=== PATIENT | male | born 1945 | race African-American/Black ===

== ENCOUNTER 2018-09-17 21:19 | Emergency (ER) | payer MEDICARE ==
[~2018-09-17] VITALS: Ht 167.6 cm; Wt 61.4 kg
[2018-09-17 21:53] LABS: BACTERIA,URINE 0 /HPF (0-FEW); BILIRUBIN,URINE NEG (NEG); CLARITY,URINE CLEAR; COLOR,URINE YELLOW; GLUCOSE,URINE NEG (NEG); HYALINE CASTS, URINE OCC /HPF; NITRITE,URINE NEG (NEG); SQUAMOUS EPITHELIAL CELL,UR FEW /LPF; UROBILINOGEN,URINE 0.2 mg/dL (0.2 mg/dL)
[2018-09-17 21:55] LABS: AMPHETAMINE/METHAMPHETAMINE NEG (NEG); BARBITURATES NEG (NEG); BENZODIAZEPINES NEG (NEG); CANNABINOIDS NEG (NEG); COCAINE NEG (NEG); METHADONE NEG (NEG); OPIATES NEG (NEG); PHENCYCLIDINE NEG (NEG)
[2018-09-17] MEDS ORDERED: LORazepam 1 MG TABLET PO ONE (22:00)
[2018-09-17] MEDS ORDERED: IV RINGERS SOLUTION,LACTATED 1,000 ML IV SCH (22:00)
[2018-09-17 22:09] LABS: BASO # 0.1 x10^3/uL (0.0-0.2); BASO % 1 % (0-3); EOS # 0.1 x10^3/uL (0.0-0.7); EOS % 1 % (0-3); HEMATOCRIT 38.6 % (39.0-53.0); LYMPH # 2.3 x10^3/uL (1.0-4.8); LYMPH % 34 % (24-48); MEAN CORPUSCULAR HEMOGLOBIN 33 pg (25-35); MEAN CORPUSCULAR HGB CONC 34 g/dL (31-37); MEAN CORPUSCULAR VOLUME 96 fL (79-100); MONO # 0.6 x10^3/uL (0.0-1.1); MONO % 9 % (0-9); NEUT # 3.7 x10^3uL (1.8-7.7); NEUT % 55 % (31-73); PLATELET COUNT 266 x10^3/uL (140-400); RED CELL DISTRIBUTION WIDTH 12.4 % (11.5-14.5); WHITE BLOOD COUNT 6.8 x10^3/uL (4.0-11.0)
--- NOTE | 2018-09-17 22:17 | EKG ---
[address] [address] Test Date: 2018-09-17 Test Time: 22:01:51 Pat Name: MAISHA PURCELL Department: Room: Gender: M Certified Detention Deputy: : 1945 Requested By: LEONOR WILL Order Number: [id number] Reading MD: Eliezer Key MD Measurements Intervals [place] Rate: 77 P: 25 GA: 160 QRS: -23 QRSD: 82 T: 34 QT: 382 QTc: 434 Interpretive Statements SINUS RHYTHM VENTRICULAR PREMATURE COMPLEX(ES) Electronically Signed On 09-19-2018 14:27:35 [employer]USTRIAL INSULATOR by Eliezer Key MD
[2018-09-17 22:24] LABS: ALBUMIN 3.5 g/dL (3.4-5.0); ALK PHOS 97 U/L (46-116); ALT (SGPT) 16 U/L (16-63); ANION GAP 10 (6-14); AST (SGOT) 13 U/L (15-37); BLOOD UREA NITROGEN 18 mg/dL (8-26); CALCIUM 9.1 mg/dL (8.5-10.1); CARBON DIOXIDE 27 mmol/L (21-32); CHLORIDE 104 mmol/L (98-107); CREATININE 1.2 mg/dL (0.7-1.3); DIRECT BILIRUBIN 0.1 mg/dL (0.0-0.2); GFR 71.4; GLUCOSE 106 mg/dL (70-99); LIPASE 129 U/L (73-393); MAGNESIUM 2.1 mg/dL (1.8-2.4); PHENY 3.2 mcg/mL (10.0-20.0); POTASSIUM 4.3 mmol/L (3.5-5.1); SODIUM 141 mmol/L (136-145); TOTAL BILIRUBIN 0.3 mg/dL (0.2-1.0); TOTAL PROTEIN 7.2 g/dL (6.4-8.2)
--- NOTE | 2018-09-17 23:01 | RAD ---
EXAM: CHEST 1 VIEW History: Seizure COMPARISON: None available. TECHNIQUE: Single portable radiograph of the chest FINDINGS: The cardiac silhouette is unremarkable. The lungs are clear bilaterally. The costophrenic sulci are clear and well demarcated. IMPRESSION: No radiographic evidence of an acute cardiopulmonary process. Electronically signed by: Jose Moncada MD (09/17/2018 10:57 PM) [facility]
[2018-09-17] MEDS ORDERED: PHENYTOIN SODIUM EXTENDED 100 MG CAPSULE PO ONE (23:45)
[2018-09-18 00:30] VITALS: BP 158/72
[2018-09-18] MEDS ORDERED: PHEN100C PO (00:32)
--- NOTE | 2018-09-18 06:00 | ED.ADGEN ---
Past History Past Medical History: CVA, GERD, Hypertension, Seizure, TIA Past Surgical History: Other Adult General Chief Complaint Chief Complaint ".. I had a seizure... " [facility] HPI Patient is a 73 year old male who presents with hx of tonic clonic seizure. Pt. reportedly has had Seizure disorder since CVA. Pt. had persistent speech, Lt hand weakness, and bilateral leg weakness. Pt. Recently moved to area from [facility]. Pt. hx. of Tonic clonic seizures when his Dilatin levels get low.. Pt. did have incontinence of urine during current tonic clonic seizure. Patient currently denies any headache or acute changes from his baseline deficits. Patient does have a history of hypertension, elevated lipids and GERD. Patient does have problems of constipation and seasonal allergies. Patient is accompanied with his sister. Pt. currently following with Dr. Estrada . Pt. appears to be on very low dosage of Dilatin by his current Rx. Pt. currently alert and oriented to bite of his baseline motor and verbal deficits. Sister reports he is back to his normal mentation level. Review of Systems Review of Systems Constitutional: Denies fever or chills [] Eyes: Denies change in visual acuity, redness, or eye pain [] HENT: Denies nasal congestion or sore throat [] Respiratory: Denies cough or shortness of breath [] Cardiovascular: No additional information not addressed in HPI [] GI: Denies abdominal pain, nausea, vomiting, bloody stools or diarrhea [] : Denies dysuria or hematuria [] Musculoskeletal: Denies back pain or joint pain [] Integument: Denies rash or skin lesions [] Neurologic: Denies headache, focal weakness or sensory changes []history of a tonic clonic seizure Endocrine: Denies polyuria or polydipsia [] All other systems were reviewed and found to be within normal limits, except as documented in this note. Family History Family History Noncontributory Current Medications Current Medications Current Medications Medications (Trade) Dose Ordered Sig/Sam Start Time Stop Time Status Last Admin Dose Admin Lactated Ringer's 1,000 ml @ 1,000 mls/hr Q1H 09/17/18 22:00 09/17/18 22:59 DC Lorazepam (Ativan) 2 mg 1X ONCE 09/17/18 22:00 09/17/18 22:03 DC 09/17/18 23:56 2 MG Phenytoin Sodium (Dilantin) 600 mg 1X ONCE 09/17/18 23:45 09/17/18 23:58 DC 09/17/18 23:56 600 MG Allergies Allergies Allergies Coded Allergies Type Severity Reaction Last Updated Verified No Known Drug Allergies 09/17/18 No Physical Exam Physical Exam Constitutional: no acute distress, non-toxic appearance. [] HENT: Normocephalic, atraumatic, bilateral external ears normal, oropharynx moist, no oral exudates, nose normal. Right lower facial droop. Poor enunciation, Eyes: PERRLA, EOMI, conjunctiva normal, no discharge. [] Neck: Normal range of motion, no tenderness, supple, no stridor. [] No carotid bruits appreciated Cardiovascular: Bradycardia cardiac Heart rate . Did have occasional PVCs per monitor . , no murmur []PMI to lt. Lungs & Thorax: Bilateral breath sounds equal at apex with few scattered wheezes on auscultation [] Abdomen: Bowel sounds normal, soft, no tenderness, no masses, no pulsatile masses. [] Skin: Warm, dry, no erythema, no rash. [] Back: No tenderness, no CVA tenderness. [] Extremities: No tenderness, no cyanosis, no clubbing, decreased leg strength and Lt hand weakness, no edema. [] Neurologic: Alert and oriented X 3, leg weakness and lt arm weakness - baseline for pt. sensory function distal. No new focal deficits noted per pt. and sister. Psychologic: Affect normal, judgement normal, mood normal per sister. Current Patient Data Lab Results Laboratory Tests Test 09/17/18 21:35 09/17/18 21:50 Urine Collection Type Void Urine Color Yellow Urine Clarity Clear Urine pH 5.5 Urine Specific [place] 1.025 Urine Protein Neg (NEG-TRACE) Urine Glucose (UA) Neg mg/dL (NEG) Urine Ketones (Stick) Neg mg/dL (NEG) Urine Blood Neg (NEG) Urine Nitrite Neg (NEG) Urine Bilirubin Neg (NEG) Urine Urobilinogen Dipstick 0.2 mg/dL (0.2 mg/dL) Urine Leukocyte Esterase Neg (NEG) Urine RBC 1-2 /HPF (0-2) Urine WBC 1-4 /HPF (0-4) Urine Squamous Epithelial Cells Few /LPF Urine Bacteria 0 /HPF (0-FEW) Urine Hyaline Casts Occ /HPF Urine Mucus Slight /LPF Urine Opiates Screen Neg (NEG) Urine Methadone Screen Neg (NEG) Urine Barbiturates Neg (NEG) Urine Phencyclidine Screen Neg (NEG) Urine Amphetamine/Methamphetamine Neg (NEG) Urine Benzodiazepines Screen Neg (NEG) Urine Cocaine Screen Neg (NEG) Urine Cannabinoids Screen Neg (NEG) Urine Ethyl Alcohol Neg (NEG) White Blood Count 6.8 x10^3/uL (4.0-11.0) Red Blood Count 4.00 x10^6/uL (4.30-5.70) L Hemoglobin 13.0 g/dL (13.0-17.5) Hematocrit 38.6 % (39.0-53.0) L Mean Corpuscular Volume 96 fL (79-100) Mean Corpuscular Hemoglobin 33 pg (25-35) Mean Corpuscular Hemoglobin Concent 34 g/dL (31-37) Red Cell Distribution Width 12.4 % (11.5-14.5) Platelet Count 266 x10^3/uL (140-400) Neutrophils (%) (Auto) 55 % (31-73) Lymphocytes (%) (Auto) 34 % (24-48) Monocytes (%) (Auto) 9 % (0-9) Eosinophils (%) (Auto) 1 % (0-3) Basophils (%) (Auto) 1 % (0-3) Neutrophils # (Auto) 3.7 x10^3uL (1.8-7.7) Lymphocytes # (Auto) 2.3 x10^3/uL (1.0-4.8) Monocytes # (Auto) 0.6 x10^3/uL (0.0-1.1) Eosinophils # (Auto) 0.1 x10^3/uL (0.0-0.7) Basophils # (Auto) 0.1 x10^3/uL (0.0-0.2) Prothrombin Time 10.2 SEC (9.4-11.4) Prothrombin Time INR 1.0 (0.9-1.1) PTT 23 SEC (23-33) Sodium Level 141 mmol/L (136-145) Potassium Level 4.3 mmol/L (3.5-5.1) Chloride Level 104 mmol/L (98-107) Carbon Dioxide Level 27 mmol/L (21-32) Anion Gap 10 (6-14) Blood Urea Nitrogen 18 mg/dL (8-26) Creatinine 1.2 mg/dL (0.7-1.3) Estimated GFR (Cockcroft-Gault) 71.4 Glucose Level 106 mg/dL (70-99) H Calcium Level 9.1 mg/dL (8.5-10.1) Magnesium Level 2.1 mg/dL (1.8-2.4) Total Bilirubin 0.3 mg/dL (0.2-1.0) Direct Bilirubin 0.1 mg/dL (0.0-0.2) Aspartate Amino Transferase (AST) 13 U/L (15-37) L Alanine Aminotransferase (ALT) 16 U/L (16-63) Alkaline Phosphatase 97 U/L (46-116) Creatine Kinase 69 U/L (39-308) Troponin I Quantitative < 0.017 ng/mL (0-0.055) JL-Jpb-E-Type Natriuretic Peptide 87 pg/mL (0-449) Total Protein 7.2 g/dL (6.4-8.2) Albumin 3.5 g/dL (3.4-5.0) Lipase 129 U/L (73-393) Phenytoin (Dilantin) Level 3.2 mcg/mL (10.0-20.0) L Phenytoin Last Dose Date Unk Phenytoin Last Dose Time Unk EKG EKG My interpretation of EKG shows sinus with vent. rate of 77, occasional PVC multifocal [] Radiology/Procedures Radiology/Procedures I interpretation of chest x-ray shows no acute cardio for pulmonary findings. Does have some baseline chronic lung changes. Findings of old rib fractures on left. There is some degenerative joint changes.[] Course & Med Decision Making Course & Med Decision Making Pertinent Labs and Imaging studies reviewed. (See chart for details). Patient to follow-up primary care. Recommend increase Dilantin to 300 mg at night. Patient was given a loading dose of Dilantin of 600 mg here before discharge. Suspect there is an error in Rx and should actually be on higher dosage. ( Not 100mg in am and 60 mg at night.) Pt. Blood level here was 3.2 [] Final Impression Final Impression 1. Tonic Clonic Seizue 2. Hx. CVA- with Chronic deficits 3. Sub Therapeutic Dilantin Level 3.2[] Kina Disclaimer Dragon Disclaimer This electronic medical record was generated, in whole or in part, using a voice recognition dictation system. LEONOR WILL MD Sep 18, 2018 06:00
== END 2018-09-18 00:52 | disposition home or self-care (01) ==
LOC: ER 21:19
DX: G40.909 Epilepsy, unspecified, not intractable, without status epilepticus (principal); R53.1 Weakness; R89.2 Abnormal level of other drugs, medicaments and biological substances in specimens from other organs, systems and tissues; E78.5 Hyperlipidemia, unspecified; K21.9 Gastro-esophageal reflux disease without esophagitis; I10 Essential (primary) hypertension; Z86.73 Personal history of transient ischemic attack (TIA), and cerebral infarction without residual deficits
CPT/HCPCS: 36415; 71045; 80048; 80076; 80185; 80307; 81001; 82550; 83690; 83735; 83880; 84443; 84484; 85025; 85610; 85730; 93005; 99285

== ENCOUNTER 2019-01-26 03:31 | Inpatient (IN) | payer MEDICARE ==
[~2019-01-26] VITALS: Ht 170.2 cm; Wt 57.2 kg
[~2019-01-26 03:31] MED LIST: PHEN100C PO
[2019-01-26 04:18] LABS: BASO % 1 % (0-3); EOS % 0 % (0-3); HEMATOCRIT 40.7 % (39.0-53.0); HEMOGLOBIN 13.9 g/dL (13.0-17.5); LYMPH # 1.1 x10^3/uL (1.0-4.8); LYMPH % 16 % (24-48); MEAN CORPUSCULAR HEMOGLOBIN 33 pg (25-35); MEAN CORPUSCULAR HGB CONC 34 g/dL (31-37); MEAN CORPUSCULAR VOLUME 98 fL (79-100); MONO # 0.3 x10^3/uL (0.0-1.1); MONO % 5 % (0-9); NEUT # 5.1 x10^3uL (1.8-7.7); NEUT % 78 % (31-73); PLATELET COUNT 241 x10^3/uL (140-400); RED BLOOD COUNT 4.17 x10^6/uL (4.30-5.70); RED CELL DISTRIBUTION WIDTH 12.9 % (11.5-14.5); WHITE BLOOD COUNT 6.5 x10^3/uL (4.0-11.0)
--- NOTE | 2019-01-26 04:27 | PHYS DOC ---
Past History Past Medical History: CVA, GERD, Hypertension, Seizure, TIA Past Surgical History: Other Alcohol Use: Sober Drug Use: None Adult General Chief Complaint Chief Complaint: SEIZURE HPI HPI 73-year-old male presents via EMS after seizure. The patient does not remember what happened. His sister provides the history. She states that he was in his bed and then started have full body convulsions. This lasted for about 5 minutes. This is typical of his previous seizures. His last seizure was 4 months ago. At that time they increased his Dilantin dosing from 30 mg daily to 60 mg daily at bedtime. The patient has been taking his medications as prescribed. At this time, he denies any pain or other complaints of any kind. He states that he is feeling normal. He tells me that he never remembers his seizures. The patient has had a cough with mucus production lately, but no fever. Review of Systems Review of Systems Constitutional: Denies fever or chills [] Eyes: Denies change in visual acuity, redness, or eye pain [] HENT: Denies nasal congestion or sore throat [] Respiratory: Cough without shortness of breath [] Cardiovascular: No additional information not addressed in HPI [] GI: Denies abdominal pain, nausea, vomiting, bloody stools or diarrhea [] : Denies dysuria or hematuria [] Musculoskeletal: Denies back pain or joint pain [] Integument: Denies rash or skin lesions [] Neurologic: Denies headache, focal weakness or sensory changes. Seizure [] Endocrine: Denies polyuria or polydipsia [] All other systems were reviewed and found to be within normal limits, except as documented in this note. Allergies Allergies Allergies Coded Allergies Type Severity Reaction Last Updated Verified aspirin Allergy Unknown 09/18/18 Yes lisinopril Allergy Unknown 09/18/18 Yes Physical Exam Physical Exam Constitutional: Well developed, well nourished, no acute distress, non-toxic appearance. [] HENT: Normocephalic, atraumatic, bilateral external ears normal, oropharynx moist, no oral exudates, nose normal. No teeth.[] Eyes: PERRLA, EOMI, conjunctiva normal, no discharge. [] Neck: Normal range of motion, no tenderness, supple, no stridor. [] Cardiovascular:Heart rate regular rhythm, no murmur [] Lungs & Thorax: Bilateral breath sounds clear to auscultation [] Abdomen: Bowel sounds normal, soft, no tenderness, no masses, no pulsatile masses. [] Skin: Warm, dry, no erythema, no rash. [] Back: No tenderness, no CVA tenderness. [] Extremities: No tenderness, no cyanosis, no clubbing, ROM intact, no edema. [] Neurologic: Alert and oriented X 3, normal motor function, normal sensory function, no focal deficits noted. [] Psychologic: Affect normal, judgement normal, mood normal. [] Current Patient Data Vital Signs Vital Signs Date Time Temp Pulse Resp B/P (MAP) Pulse Ox O2 Delivery O2 Flow Rate FiO2 01/26/19 03:37 98.6 46 19 100 Room Air EKG EKG Sinus rhythm, rate 83, trigeminy, leftward axis, no ST elevations or depressions.[] Radiology/Procedures Radiology/Procedures [] Impressions: CT scan of the head without contrast 01/26/2019 Clinical History: Seizures. Technique: Unenhanced, contiguous, 5 mm axial sections were obtained through the head. Findings: No previous imaging studies are available for comparison. There is generalized parenchymal atrophy. Areas of decreased attenuation are seen within the periventricular and subcortical white matter of both cerebral hemispheres consistent with areas of small vessel ischemic disease. No acute parenchymal abnormality is seen. No extra-axial fluid collection is noted. No skull fracture is seen. Impression: No acute intracranial abnormality is seen. Electronically signed by: Heri Ruiz MD (01/26/2019 4:56 AM) [id number] DICTATED AND SIGNED BY: HERI RUIZ MD DATE: 01/26/19 0456 CC: AYLIN MOHAN DO; LEESA MATA MD AP portable chest radiograph 01/26/2019 Clinical History: Seizure. An AP erect portable digital radiograph of the chest was obtained. Comparison study is dated 09/17/2018. The cardiac silhouette is normal in size. The thoracic aorta is tortuous. Atherosclerotic calcification thoracic aorta is seen. No acute pulmonary infiltrate is noted. No pneumothorax or pleural effusion is seen. Degenerative changes are seen involving the thoracic spine and both shoulders. Impression: No acute abnormality is seen. Electronically signed by: Heri Ruiz MD (01/26/2019 5:15 AM) [facility] DICTATED AND SIGNED BY: HERI RUIZ MD DATE: 01/26/19 0515 CC: AYLIN MOHAN DO; LEESA MATA MD Course & Med Decision Making Course & Med Decision Making Pertinent Labs and Imaging studies reviewed. (See chart for details) The patient's phenytoin level is subtherapeutic at 2.9. As I was reviewing his labs, the patient had a second seizure in the emergency room. This was tonic- clonic in nature. We gave him 2 mg of Ativan IV. We'll give him 10 mg/kg loading dose of fosphenytoin as he is nothing by mouth for now. The rest of the patient's labs and urinalysis are unremarkable. His head CT is deferred acute findings. His chest x-ray is negative for acute findings. I will admit the patient to the hospital for further management. I discussed the patient with Dr. Mata and he has accepted the patient for admission. [] Dragon Disclaimer Dragon Disclaimer This electronic medical record was generated, in whole or in part, using a voice recognition dictation system. Departure Departure: Impression: Primary Impression: Breakthrough seizure Disposition: ADMITTED INPATIENT Condition: STABLE Referrals: LEESA MATA MD (PCP) AYLIN MOHAN DO Jan 26, 2019 04:27
[2019-01-26 04:29] LABS: BACTERIA,URINE 0 /HPF (0-FEW); BILIRUBIN,URINE NEG (NEG); CLARITY,URINE CLEAR; COLOR,URINE YELLOW; GLUCOSE,URINE NEG (NEG); NITRITE,URINE NEG (NEG); RBC,URINE 0 /HPF (0-2); SQUAMOUS EPITHELIAL CELL,UR OCC /LPF; UROBILINOGEN,URINE 0.2 mg/dL (0.2 mg/dL); WBC,URINE RARE /HPF (0-4)
[2019-01-26 04:31] LABS: PHENY 2.9 mcg/mL (10.0-20.0)
[2019-01-26 04:38] LABS: ALBUMIN 3.9 g/dL (3.4-5.0); ALBUMIN/GLOBULIN RATIO 1.1 (1.0-1.7); CALCIUM 9.3 mg/dL (8.5-10.1); CREATININE 1.3 mg/dL (0.7-1.3); GFR 65.1; POTASSIUM 4.4 mmol/L (3.5-5.1); TOTAL BILIRUBIN 0.5 mg/dL (0.2-1.0); TOTAL PROTEIN 7.3 g/dL (6.4-8.2)
--- NOTE | 2019-01-26 04:59 | RAD ---
CT scan of the head without contrast 01/26/2019 Clinical History: Seizures. Technique: Unenhanced, contiguous, 5 mm axial sections were obtained through the head. Findings: No previous imaging studies are available for comparison. There is generalized parenchymal atrophy. Areas of decreased attenuation are seen within the periventricular and subcortical white matter of both cerebral hemispheres consistent with areas of small vessel ischemic disease. No acute parenchymal abnormality is seen. No extra-axial fluid collection is noted. No skull fracture is seen. Impression: No acute intracranial abnormality is seen. Electronically signed by: Heri Ruiz MD (01/26/2019 4:56 AM) [facility]
[2019-01-26] MEDS ORDERED: NORMAL SALINE IV ONE (05:00)
[2019-01-26] MEDS ORDERED: IV NORMAL SALINE 50ML 50 ML ONE (05:00)
[2019-01-26] MEDS ORDERED: FOSPHENYTOIN IV ONE (05:00)
[2019-01-26] MEDS ORDERED: FOSPHENYTOIN 500 MG/10 ML VIAL IV ONE (05:01)
--- NOTE | 2019-01-26 05:18 | RAD ---
AP portable chest radiograph 01/26/2019 Clinical History: Seizure. An AP erect portable digital radiograph of the chest was obtained. Comparison study is dated 09/17/2018. The cardiac silhouette is normal in size. The thoracic aorta is tortuous. Atherosclerotic calcification thoracic aorta is seen. No acute pulmonary infiltrate is noted. No pneumothorax or pleural effusion is seen. Degenerative changes are seen involving the thoracic spine and both shoulders. Impression: No acute abnormality is seen. Electronically signed by: Heri Ruiz MD (01/26/2019 5:15 AM) [facility]
[2019-01-26 06:03] VITALS: BP 136/77
--- NOTE | 2019-01-26 06:39 | EKG ---
[address] [address] Test Date: 2019-01-26 Test Time: 04:03:23 Pat Name: MAISHA PURCELL Department: Room: 125 A Gender: M Supervisor [employer] House: : 1945 Requested By: AYLIN MOHAN Order Number: [id number] Reading MD: Eliezer Key MD Measurements Intervals [place] Rate: 83 P: 37 NM: 154 QRS: -21 QRSD: 74 T: 52 QT: 374 QTc: 440 Interpretive Statements SINUS RHYTHM VENTRICULAR PREMATURE COMPLEX(ES), TRIGEMINY Electronically Signed On 01-29-2019 22:02:23 CDT by Eliezer Key MD
[2019-01-26 10:25] VITALS: BP 122/70
--- NOTE | 2019-01-26 10:52 | HP ---
ADMIT DATE: 01/26/2019 HISTORY OF PRESENT ILLNESS: A 73-year-old gentleman came in with seizure-like activity, was brought in through the Emergency Room where apparently does not remember what happened. The patient apparently not taking his medication, had full body convulsions that lasted approximately 5 minutes. His last seizure was about 4 months ago. He recently increased his Dilantin from 30 mg to 60 mg daily as prescribed, I am not quite sure who has prescribed that for him. Denies any pain, chest pain, shortness of breath and the like. The patient was admitted for seizures and subtherapeutic doses of his medications. PAST MEDICAL HISTORY: That of has had a history of a stroke, left-sided residual and history of seizures no doubt. ALLERGIES: ASPIRIN, LISINOPRIL. CODE STATUS: The patient is a full code. FAMILY HISTORY: Unremarkable. SOCIAL HISTORY: Previous history of smoking, but nothing recent and no drinking or drug use. REVIEW OF SYSTEMS: The patient otherwise being lethargic. He is not able to give much of a history. Denies chest pain, abdominal pain. Denies any nausea, vomiting, melena, hematochezia, or hematemesis. PHYSICAL EXAMINATION: GENERAL: This is a very pleasant [place]ro[place] gentleman in moderate amount of distress. He is very tired. VITAL SIGNS: Blood pressure 160/80, respiratory rate 20, pulse 46-70, afebrile. The patient's oxygen saturation 97%. HEENT: The patient's head was atraumatic, normocephalic. Eyes; PERRLA without jaundice. Mouth and throat were normal. NECK: Supple, without JVD, carotid bruits. No thyromegaly. LUNGS: Diminished throughout, but basically clear. CARDIOVASCULAR: Regular sinus rhythm, S1, S2, without murmur, rub, thrill, or extra heart sound. ABDOMEN: Soft, nontender, no rebounding or guarding. No hepatosplenomegaly. EXTREMITIES: No clubbing, cyanosis or edema. NEUROLOGIC: Lethargic. Eyes are PERRLA, EOMI, sclerae clear, fundi benign. The patient was able to follow some basic commands. Plantars were down. Reflexes were brisk. LABORATORY DATA: The patient's labs are basically stable in terms of his CBC. Cardiac enzymes were all basically within normal limits except for his Dilantin level only 2.9. PLAN: The patient was admitted for further evaluation of his seizure activity and get his Dilantin level up to therapeutic levels and consult with Dr. Mejias, neurologist. LEESA MATA MD DR: MALA/caro JOB#: [id number] / [id number]
[2019-01-26 11:55] LABS: PHENY 12.4 mcg/mL (10.0-20.0)
[2019-01-26 14:47] VITALS: BP 116/73
[2019-01-26] MEDS: IV NORMAL SALINE 1,000ML 1,000 ML IV SCH (16:59)
[2019-01-26 19:55] VITALS: BP 135/81
[2019-01-26] MEDS ORDERED: PHENYTOIN SODIUM EXTENDED 100 MG CAPSULE PO SCH (21:00)
[2019-01-26] MEDS: FOSPHENYTOIN 100 MG/2 ML VIAL IV SCH (22:55)
[2019-01-26 23:37] VITALS: BP 121/66
--- NOTE | 2019-01-27 01:07 | CONS ---
DATE OF CONSULTATION: 01/26/2019 REFERRING PHYSICIAN: Dr. Estrada. REASON FOR CONSULTATION: Breakthrough seizure. HISTORY OF PRESENT ILLNESS: This is a 73-year-old right-handed -[place]og[place]ese male who was admitted through Emergency Room after he presented with possible seizure-like activities. According to the patient, he has not been taking medication regularly. He does not recall what happened to him, however, it was weakness, it was reported that he had a seizure, a generalized tonic-clonic seizure, but the patient did not recall the event. The patient is not perfect historian. He stated his last seizure was 4 months ago and he is supposed to take Dilantin, but he does not remember the dose. He stated he was taking 60 mg of Dilantin at bedtime, which is usually not a standard dose for seizure. The last seizure was approximately 4 months ago. The patient denies any urinary or bowel incontinence. Apparently, he was somewhat confused for a few minutes after the seizure activities. Initial nonenhanced head CT scan revealed no evidence of acute intracranial process. Currently, the patient denies headaches, visual disturbances, nausea, vomiting, chest pain, shortness of breath or palpitation, dysarthria, dysphagia, weakness or paresthesia. In the Emergency Room, the patient was loaded with fosphenytoin at 590 mg intravenously. He has not had any recurrent seizures since. The patient has been scheduled to receive 300 mg of Dilantin nightly. PAST MEDICAL HISTORY: Significant for seizure as described above, history of stroke several years ago, GERD, hypertension, possible TIA. SOCIAL HISTORY: The patient denies smoking, alcohol drinking, or illicit drug use. FAMILY HISTORY: Noncontributory. REVIEW OF SYSTEMS: A 10-point review of system was performed as mentioned above in history of present illness, otherwise unremarkable. PHYSICAL EXAMINATION: GENERAL: Well-developed, well-nourished -[place]og[place]ese man, not in acute distress. He weighs 132 pounds. VITAL SIGNS: Blood pressure 122/70, respiratory rate 18, pulse is 60 and regular, temperature 98.4, oxygen saturation is 99% on 2 liters by nasal cannula. HEENT: Normocephalic, atraumatic, otherwise unremarkable. NECK: Supple. Negative for carotid bruit, lymphadenopathy or thyromegaly. LUNGS: Clear to A and P. CARDIOVASCULAR: Regular rhythm, normal S1, S2. There is no S3, S4 or murmurs. ABDOMEN: Soft. Bowel sounds positive. EXTREMITIES: Negative for cyanosis, clubbing or pitting edema. NEUROLOGICAL EXAM: Mental Status: The patient is alert and oriented to time and place and person. The speech is fluent. There is no language dysfunction. Patient recalls 2/3 immediately and 1/3 after 1 and 3 minutes. Judgment and abstracting thinking are fair. The patient denies hallucination or delusion. CRANIAL NERVES: Visual perez are full. The pupils are reactive to light and accommodation. The extraocular movements are intact. There is no nystagmus. There is no facial motor or sensory deficit. Hearing is intact bilaterally. The palate is elevated symmetrically. Sternocleidomastoid muscles are powerful bilaterally. The patient shrugs his shoulders symmetrically, protrudes his tongue in the midline without fasciculation or atrophy. MOTOR: No focal muscle bulk was seen. The tone is normal. The strength is 4/5 throughout. Sensory examination revealed normal to pinprick, light touch, vibratory and position senses. Deep tendon reflexes were asymmetric and hypoactive with absent Achilles responses. Gait not tested at this time. LABORATORY DATA: CBC revealed white blood cells of 6.5 thousand, hemoglobin 15.9, hematocrit 40.7, platelet count 241,000. Chemistry revealed sodium of 136, potassium 4.4, chloride 100, CO2 24, BUN 16, creatinine 1.3, glucose 115, calcium 9.3. Troponin level is normal and liver enzymes are normal with low AST. Urinalysis is negative for urinary tract infections, phenytoin level is very low at 2.9. After giving a loading dose of fosphenytoin, his Dilantin level at 11:37 was 12.4. A nonenhanced head CT scan revealed no evidence of acute intracranial process and a chest x-ray revealed no acute abnormalities. IMPRESSION: 1. Possible breakthrough seizure in a patient with history of seizure disorder of etiology uncertain, probably due to previous stroke. 2. Multiple medical problems include hypertension, GERD and possible transient ischemic attack. RECOMMENDATIONS: 1. Continue with phenytoin 300 mg at bedtime. 2. We will arrange for electroencephalogram on an outpatient basis. 3. Should the patient have a breakthrough seizure, we will start him on Ativan and adjust phenytoin. M Ben DIAZ MD DR: Bennie JOB#: [id number] / [id number]
[2019-01-27 04:56] VITALS: BP 134/76
[2019-01-27] MEDS: FOSPHENYTOIN 100 MG/2 ML VIAL IV SCH ×3 (05:45→21:35)
[2019-01-27] MEDS: IV NORMAL SALINE 1,000ML 1,000 ML IV SCH (08:27)
[2019-01-27 10:02] VITALS: BP 120/62
[2019-01-27 10:17] LABS: PHENY 12.7 mcg/mL (10.0-20.0)
--- NOTE | 2019-01-27 11:42 | RAD ---
Swallow study January 27, 2019 INDICATION: Aspiration. COMPARISON: None available TECHNIQUE: Evaluation was performed during the ingestion of thin, honey thick, pureed and solid consistencies. Fluoroscopy time: 2 minutes Number of images: 14 FINDINGS: There is aspiration with all consistencies ingested. Findings are exacerbated with moderate residue within the vallecula and trace residue within the piriform sinuses. There is poor epiglottic inversion. Mild cervical osteophytosis. IMPRESSION: There is aspiration with all consistencies ingested. Please refer to the separate CT pathology report for further details. Electronically signed by: Vaishali Rahman MD (01/27/2019 11:39 AM) [id number]
[2019-01-27 15:00] VITALS: BP 127/59
[2019-01-27] MEDS: AA 3%/ELECTROLYTE-TPN SOLN/GLY 1,000 ML IV SCH (15:14)
[2019-01-27 19:32] VITALS: BP 153/64
--- NOTE | 2019-01-27 19:43 | PN ---
DATE: SUBJECTIVE: The patient continued to have some difficulty swallowing. A bedside swallowing test revealed evidence of dysphagia and possible risk of aspiration. Therefore, the patient has been scheduled for a video dysphagia test today. He has not had any recurrent seizure. He denies any new medical or neurological complaints. OBJECTIVE: GENERAL: Well-developed, well-nourished -Maced[place] male, not in acute distress. VITAL SIGNS: Blood pressure 134/76, respiratory rate 20, pulse is 63, temperature 98.6, oxygen saturation 97% on room air. HEENT: Normocephalic, atraumatic, otherwise unremarkable. NECK: Supple. Negative for carotid bruit, lymphadenopathy or thyromegaly. LUNGS: Clear to A and P. CARDIOVASCULAR: Regular rhythm, normal S1, S2. ABDOMEN: Soft. Bowel sounds positive. EXTREMITIES: Negative for cyanosis, clubbing or pitting edema. NEUROLOGICAL EXAM: Mental Status: The patient is alert and oriented x 3. Speech is fluent. There is no language dysfunction. Memory, judgment, and abstracting thinking are fair. The patient denies hallucination or delusion. Cranial nerves are intact except for mild bilateral hearing loss. Motor Examination: No focal muscle bulk was seen. The tone is normal. The strength is 4/5 throughout. Sensory examination revealed normal pinprick and light touch senses throughout. Deep tendon reflexes were asymmetric and hypoactive with absent Achilles responses. Gait: The patient uses a walker for ambulation. IMPRESSION: 1. Breakthrough seizure, described as generalized tonic-clonic seizure, probably due to noncompliance and subtherapeutic level of phenytoin, but the current phenytoin level is therapeutic on maintenance dose of 300 mg daily. 2. Dysphagia. 3. Multiple medical problems include gastroesophageal reflux disease, hypertension, and history of stroke. RECOMMENDATIONS: 1. Continue with current management initiated by Dr. Estrada. 2. Physical therapy evaluation. 3. Await for dysphagia video test. M Ben DIAZ MD DR: KARINA/caro JOB#: [id number] / [id number]
[2019-01-27 23:24] VITALS: BP 128/68
--- NOTE | 2019-01-28 00:50 | PN ---
DATE: SUBJECTIVE: The patient is a 73-year-old male admitted with seizure activity. The patient did have a video swallow today and it was basically aspiration, consistent with everything ingested, liquid as well as solid. As a result of this, the family will be consulted on whether or not they want a gastrostomy tube or put him on hospice. In any case, the patient is resting fairly comfortably. OBJECTIVE: VITAL SIGNS: Blood pressure 127/59, respiratory rate 20, pulse 80, and afebrile. GENERAL: The patient is alert and oriented. LUNGS: Show some coarse breath sounds. CARDIOVASCULAR: Tachycardic. ABDOMEN: Soft, nontender. PLAN: The patient will be placed on ProcalAmine, while the family makes their decision as to the course of therapy. IMPRESSION: Complete aspiration of liquids and solids, seizure activity, being monitored by Dr. Mejias, on the latter. We will go ahead and wait for family's consultation for their decision. LEESA MATA MD DR: MALA/caro JOB#: [id number] / [id number]
[2019-01-28] MEDS ORDERED: SODIUM CHLORIDE 0.65% NASAL SPRAY 45ML BOTTLE. NS PRN (01:30)
[2019-01-28] MEDS: AA 3%/ELECTROLYTE-TPN SOLN/GLY 1,000 ML IV SCH ×2 (02:00→17:24)
[2019-01-28] MEDS: diphenhydrAMINE 50 MG/ML VIAL IVP PRN (02:00)
[2019-01-28] MEDS: FOSPHENYTOIN 100 MG/2 ML VIAL IV SCH ×3 (05:33→21:50)
[2019-01-28 05:46] VITALS: BP 113/76
[2019-01-28 11:29] VITALS: BP 136/72
--- NOTE | 2019-01-28 13:20 | PN ---
DATE: 01/28/2019 SUBJECTIVE: The patient denies any new medical neurological complaints. He continues to have dysphagia. A recent dysphagia, we did test result, a complete aspiration was all consistency ingested. He denies any recurrent seizures. OBJECTIVE: GENERAL: Well-developed, well-nourished -[place]aporean male, not in acute distress. VITAL SIGNS: Blood pressure 130/76, respiratory rate 18, pulse is 89, temperature 97.8, oxygen saturation 96% on room air. HEENT: Normocephalic, atraumatic, otherwise unremarkable. NECK: Supple. Negative for carotid bruit, lymphadenopathy or thyromegaly. LUNGS: Clear to A and P. CARDIOVASCULAR: Regular rate and rhythm, normal S1, S2. There is no S3, S4 or murmur. ABDOMEN: Soft. Bowel sounds positive. EXTREMITIES: Negative for cyanosis, clubbing or pitting edema. NEUROLOGIC: The patient is alert and oriented x 3. Speech is fluent. There is no language dysfunction. Cranial nerves are intact. No focal motor or sensory deficit. Deep tendon reflexes are symmetric and hypoactive with absent Achilles responses. Gait not tested at this time. IMPRESSION: 1. Breakthrough seizures. However, the patient has not had any recurrent seizure and he is on phenytoin with current therapeutic level. 2. Dysphagia with abnormal video dysphagia test consistent with complete aspiration to with all consistencies ingested. RECOMMENDATIONS: 1. Continue with current management and medication. 2. Physical therapy as tolerated. 3. Await for feeding tube. M Ben DIAZ MD DR: KARINA/caro JOB#: [id number] / [id number]
[2019-01-28 15:50] VITALS: BP 134/64
[2019-01-28 19:10] VITALS: BP 113/74
--- NOTE | 2019-01-28 22:41 | PN ---
DATE: 01/28/2019 SUBJECTIVE: The patient is resting, slightly propped up in bed, in no apparent respiratory distress. He states that he is hungry and would like to eat. Apparently, he has failed his video swallowing evaluation and as per his all consistencies and a discussion yesterday with our manager social media and his family was about decision making regarding either pursuing aggressive approach and placement of a feeding tube and/or palliative and hospice care. The patient himself, when asked, he said that he does not want a feeding tube; however, I have not interacted with his family yet and obviously by tomorrow we need to have a final decision as I need to transfer him to [facility] for placement of a feeding tube on Wednesday. PHYSICAL EXAMINATION: GENERAL: When I saw him this afternoon, he was resting flat, slightly propped up in bed, in no apparent respiratory distress, pale, but no jaundice, cyanosis or thyromegaly. No jugular venous distension. No lower limb edema. VITAL SIGNS: Her heart rate was 57, blood pressure was 136/72, temperature was 99.1, respiratory rate was 18 and oxygen saturation was 99% on 2 liters of oxygen by nasal cannula. HEENT: Examination of the head, eyes, ears, nose and throat showed normocephalic, atraumatic. NECK: Supple. HEART: Showed normal first and second heart sounds. No gallop, rub or murmur. CHEST: Clear to auscultation. No crepitation or rhonchi. ABDOMEN: Slightly distended, soft, nontender. NEUROLOGIC: He was awake, alert, responding appropriately and when questioned, he said he does not want a feeding tube in; however, I have not met the family yet to discuss that issue with them. LABORATORY DATA: His most recent lab work showed a white cell count of 6500, hemoglobin 14, hematocrit 41, MCV 98 and platelet count of 241,000. His serum sodium was 136, potassium 4.4, chloride 100, bicarbonate 24, anion gap 12, BUN 16, creatinine 1.3, estimated GFR was 65 mL per minute, his glucose 115, calcium was 9.3. Total bilirubin, AST, ALT, alkaline phosphatase were normal. Total protein was 7.3, albumin 3.9. Urinalysis was unremarkable. Toxic screen showed that phenytoin is within therapeutic range. ASSESSMENT: 1. Breakthrough seizures for which the patient continued to be on IV phenytoin and has had no further recurrence. 2. Dysphagia with abnormal video swallowing test consistent with component of aspiration to all consistencies. PLAN: The plan is to await the final decision by the family as I need to arrange for him to be transferred to [facility] for placement of percutaneous endoscopic gastrostomy tube. Meanwhile, I will repeat his labs tomorrow. SAFIA BERGER MD DR: JENNIFER/caro JOB#: [id number] / [id number]
[2019-01-29] MEDS: AA 3%/ELECTROLYTE-TPN SOLN/GLY 1,000 ML IV SCH ×2 (04:30→17:00)
[2019-01-29] MEDS: FOSPHENYTOIN 100 MG/2 ML VIAL IV SCH ×3 (06:00→21:32)
[2019-01-29 06:34] VITALS: BP 132/74
[2019-01-29 07:26] LABS: HEMATOCRIT 38.5 % (39.0-53.0); HEMOGLOBIN 13.1 g/dL (13.0-17.5); RED BLOOD COUNT 3.98 x10^6/uL (4.30-5.70); RED CELL DISTRIBUTION WIDTH 12.7 % (11.5-14.5); WHITE BLOOD COUNT 5.6 x10^3/uL (4.0-11.0)
[2019-01-29 07:41] LABS: ALBUMIN 3.1 g/dL (3.4-5.0); ALBUMIN/GLOBULIN RATIO 0.8 (1.0-1.7); CALCIUM 8.9 mg/dL (8.5-10.1); CREATININE 1.1 mg/dL (0.7-1.3); POTASSIUM 4.2 mmol/L (3.5-5.1); TOTAL BILIRUBIN 0.6 mg/dL (0.2-1.0); TOTAL PROTEIN 6.8 g/dL (6.4-8.2)
[2019-01-29 15:08] VITALS: BP 126/78
[2019-01-29 18:40] VITALS: BP 143/73
--- NOTE | 2019-01-29 20:15 | PN ---
DATE: 01/29/2019 SUBJECTIVE: The patient denies any new medical or neurological complaints. He has not had any seizures since admission; however, he has had continuous dysphagia. OBJECTIVE: GENERAL: Well-developed, well-nourished -[place] male, not in acute distress. VITAL SIGNS: Blood pressure 132/74, respiratory rate 12, pulse is 58, temperature 98.2, oxygen saturation 96% on room air. HEENT: Normocephalic, atraumatic, otherwise unremarkable. NECK: Supple. Negative for carotid bruit, lymphadenopathy or thyromegaly. LUNGS: Clear to A and P. CARDIOVASCULAR: Regular rate and rhythm, normal S1, S2. ABDOMEN: Soft. Bowel sounds positive. EXTREMITIES: Negative for cyanosis, clubbing, or pitting edema. NEUROLOGIC: 1. Mental Status: The patient is alert and oriented x 3. Speech is fluent. There is no language dysfunction. 2. Cranial Nerves: There is left facial asymmetry probably due to previous stroke, otherwise unremarkable cranial nerves. 3. Motor Examination: No focal muscle bulk was seen. The tone is normal. The strength is 5/5 throughout. 4. Sensory examination revealed normal pinprick and light touch senses throughout. Deep tendon reflexes were symmetric and hypoactive with absent Achilles responses. Gait not tested. IMPRESSION: 1. Breakthrough seizure - stable. No recurrence since admission. 2. Dysphagia. 3. Multiple medical problems to include hypertension, gastroesophageal reflux disease, and history of stroke. RECOMMENDATIONS: 1. Continue with current management initiated by Dr. Erickson. 2. Await for feeding tube placement. M Ben DIAZ MD DR: KARINA/caro JOB#: [id number] / [id number]
--- NOTE | 2019-01-29 21:31 | PN ---
DATE: SUBJECTIVE: The patient was admitted for a breakthrough seizure and apparently has had severe dysphagia to all consistencies. I was under the impression that he is going to be transferred to [facility]; however, the patient makes his own decision and he was insisting he wants to go home, although his video swallowing evaluation showed that he is aspirating all consistencies. I basically opted to keep him overnight that we will talk to him again tomorrow and perhaps evaluate his swallowing and get the social services to discuss with him further, the implication of his decision and either discharge him home with hospice or transfer him to [facility] for placement of percutaneous endoscopic gastrostomy tube. PHYSICAL EXAMINATION: GENERAL: When I saw him this morning, he looked well and was clearly in no apparent respiratory distress, pale, but no jaundice, cyanosis, or thyromegaly. No jugular venous distension. No limb edema. VITAL SIGNS: Her heart rate was 58, blood pressure 132/74, temperature was 98.2, respiratory rate 12 and oxygen saturation was 96%. The rest of clinical examination is stable, has not really changed. His intake was 800, output was 750. LABORATORY DATA: His lab work this morning showed a white cell count 5600, hemoglobin 13, hematocrit 39, MCV 97, and platelet count 200,000. Serum sodium 140, potassium 4.2, chloride 105, bicarbonate 27, anion gap of 8, BUN 18, creatinine 1.1, estimated GFR was 79 mL per minute. His glucose was 104, calcium was 8.9. Total bilirubin, AST, ALT, alkaline phosphatase were normal. Total protein 6.8, albumin 3.1. Urinalysis is unremarkable and toxic screen showed his phenytoin level was 12.7, which is well within therapeutic range. ASSESSMENT AND PLAN: 1. Breakthrough seizure for which the patient is now on IV phenytoin, has had no further recurrence and his phenytoin level is within therapeutic range. 2. Dysphagia with abnormal video swallowing test consistent with confirming that he is aspirating all consistencies. 3. Left-sided hemiplegia. 4. Hypertension. 5. Gastroesophageal reflux disease. SAFIA BERGER MD DR: JENNIFER/caro JOB#: [id number] / [id number]
[2019-01-29] MEDS: diphenhydrAMINE 50 MG/ML VIAL IVP PRN (21:32)
[2019-01-29 22:45] VITALS: BP 130/74
[2019-01-30] MEDS: AA 3%/ELECTROLYTE-TPN SOLN/GLY 1,000 ML IV SCH ×3 (02:02→17:59)
[2019-01-30] MEDS: FOSPHENYTOIN 100 MG/2 ML VIAL IV SCH ×2 (05:33→14:27)
[2019-01-30 05:50] VITALS: BP 101/63
[2019-01-30 10:40] VITALS: BP 121/78
[2019-01-30 15:00] VITALS: BP 112/62
[2019-01-30] MEDS ORDERED: diphenhydrAMINE HCL 25 MG CAPSULE PO PRN (18:15)
[2019-01-30 19:34] VITALS: BP 142/75
[2019-01-30] MEDS ORDERED: PHENYTOIN SODIUM EXTENDED 100 MG CAPSULE PO SCH (21:00)
--- NOTE | 2019-01-30 21:10 | PN ---
DATE: 01/30/2019 SUBJECTIVE: The patient denies any new medical or neurological complaints. He has not had any seizures since admission; however, he declined to have a feeding tube placed. OBJECTIVE: GENERAL: Well-developed, well-nourished male, not in acute distress. VITAL SIGNS: Blood pressure 101/63, respiratory rate 18, pulse is 59, oxygen saturation is 96% on room air and temperature is 99. HEENT: Normocephalic, atraumatic, otherwise unremarkable. NECK: Supple. Negative for carotid bruit, lymphadenopathy or thyromegaly. LUNGS: Clear to A and P. CARDIOVASCULAR: Regular rhythm, normal S1, S2. ABDOMEN: Soft. Bowel sounds positive. EXTREMITIES: Negative for cyanosis, clubbing or pitting edema. NEUROLOGICAL EXAM: MENTAL STATUS: The patient is alert and oriented x 3. Speech is fluent. There is no language dysfunction, otherwise unremarkable. The cranial nerves are intact except for left facial asymmetry, probably secondary to previous stroke. MOTOR EXAMINATION: The patient moves his upper and lower extremities normally with the strength is 5/5 throughout. SENSORY EXAMINATION: Revealed normal pinprick and light touch senses throughout. Deep tendon reflexes were symmetric and hypoactive and absent Achilles responses. GAIT: The patient uses a walker for ambulation. IMPRESSION: 1. Breakthrough seizure. The patient has not had any recurrence of seizures since admission. He is on IV phenytoin. 2. Left facial asymmetry, probably due to previous stroke; however, no further motor deficits on the left upper and lower extremities. 3. Dysphagia with abnormal video dysphagia test consistent with all consistencies, gastroesophageal reflux disease. The patient still refuses J-tube placement. RECOMMENDATIONS: Continue with current management initiated by Dr. Erickson. The patient probably is going to be on hospice. M Ben DIAZ MD DR: KARINA/caro JOB#: [id number] / [id number]
--- NOTE | 2019-01-31 01:43 | PN ---
DATE: 01/30/2019 SUBJECTIVE: The patient is sitting comfortably in his chair, in no apparent distress. He was hungry and was actually given food to eat, although he obviously is at very high risk for aspiration. He has signed DNR/DNI and he was accepted to go on hospice. Hospice partners have agreed to take care of him at [facility] and the plan was for him to be discharged there today, however there are some issues that have not been finalized at the [facility] facility. Meanwhile, we have continued on his ProcalAmine for nutritional support. OBJECTIVE: GENERAL: When I examined him, he looked well and was clearly in no apparent respiratory distress. He was pale. No jaundice, cyanosis, or thyromegaly. No jugular venous distension. No lower limb edema. VITAL SIGNS: His heart rate was 71, blood pressure was 112/62, temperature was 98.7, respiratory rate was 20, and oxygen saturation was 95%. HEAD, EYES, EARS, NOSE, AND THROAT: Normocephalic, atraumatic. NECK: Supple. HEART: Showed normal first and second heart sounds with no gallop, rub, or murmur. CHEST: Clear to auscultation. No crepitation or rhonchi. ABDOMEN: Scaphoid, soft, nontender. NEUROLOGIC: He was awake, alert, responding at times appropriately. He had left facial asymmetry probably due to previous stroke, otherwise unremarkable. ASSESSMENT AND PLAN: 1. Breakthrough seizures, stable. No recurrence since admission. He continues to be on IV phenytoin 100 mg 3 times a day. 2. Dysphagia, the patient refused feeding tube placement and opted to go on hospice. 3. Multiple medical problems including hypertension, gastroesophageal reflux disease, and history of stroke. We will obviously discharge him once the [facility] accepted him. SAFIA BERGER MD DR: JENNIFER/caro JOB#: [id number] / [id number]
[2019-01-31 05:31] VITALS: BP 133/80
[2019-01-31 15:37] VITALS: BP 106/76
--- NOTE | 2019-01-31 17:06 | DS ---
DATE OF DISCHARGE: 01/31/2019 HOSPITAL COURSE: The patient is a 73-year-old male patient who was admitted with seizure-like activity was brought in through the Emergency Room. He apparently was not taking his medication, had full body convulsion that lasted approximately 5 minutes. His last seizure was about 4 months ago. He recently increased his Dilantin from 30 to 60 mg daily as prescribed. In any case, the patient was diagnosed with breakthrough seizures. He also apparently has dysphagia and was high risk for aspiration of all consistencies and there was a discussion whether he should go for gastrostomy tube placement or hospice; however, the patient refused to do the gastrostomy tube and would like to continue to eat and drink and therefore, a decision was made to discharge him to [facility] to continue with physical and occupational therapy and speech therapy. PHYSICAL EXAMINATION: GENERAL: When I saw him today, he looked well and was clearly in no apparent respiratory distress, pale, somewhat cachectic, but no jaundice, cyanosis, lymphadenopathy or thyromegaly. No jugular venous distention. No lower limb edema. VITAL SIGNS: His heart rate was 61, blood pressure was 133/80, temperature was 99.4, respiratory rate 20, and oxygen saturation was 96% on room air. HEAD, EYES, EARS, NOSE AND THROAT: Showed normocephalic, atraumatic. NECK: Supple. HEART: Showed normal first and second sounds. No gallop, rub or murmur. CHEST: Clear to auscultation. No crepitation or rhonchi. ABDOMEN: Distended, soft, nontender. NEUROLOGIC: He was awake, alert. He has residual right-sided hemiparesis. His intake over the last 24 hours was 1300, output was 600. LABORATORY DATA: Most recent lab work showed a white cell count 5600, hemoglobin 13, hematocrit 39, MCV 97, and platelet count 200,000. His most recent chemistry showed a BUN of 18, creatinine 1.1. His phenytoin trough level was 12.7. DISCHARGE MEDICATIONS: The patient was discharged to [facility] to continue on phenytoin sodium extended release 300 mg at night time. FINAL DISCHARGE DIAGNOSES: Breakthrough seizures, left middle cerebral artery territory infarct with right-sided hemiplegia, dysphagia, hypertension, gastroesophageal reflux disease. SAFIA BERGER MD DR: Gay JOB#: [id number] / [id number]
--- NOTE | 2019-02-06 02:43 | PN ---
DATE: 01/31/2019 SUBJECTIVE: The patient stated he is doing well. He wants to go home. He denies any new medical or neurological complaints; however, the patient has significant dysphagia. He denies any recurrent seizure. The patient declined to have a feeding tube placed. OBJECTIVE: GENERAL: A well-developed, well-nourished -[place] male, not in acute distress. VITAL SIGNS: Blood pressure 106/76, respiratory rate 20, pulse is 73, temperature 98.2, oxygen saturation 95% on room air. HEENT: Normocephalic, atraumatic, otherwise unremarkable. NECK: Supple. Negative for carotid bruit, lymphadenopathy or thyromegaly. LUNGS: Clear to A and P. CARDIOVASCULAR: Regular rhythm, normal S1, S2. ABDOMEN: Soft. Bowel sounds positive. EXTREMITIES: Negative for cyanosis, clubbing or pitting edema. NEUROLOGICAL EXAM: Mental Status: The patient is alert and oriented x 3. The speech is fluent. There is no language dysfunction. The cranial nerves are grossly intact. The patient had left facial asymmetry, probably secondary to previous stroke. Deep tendon reflexes were symmetric and hypoactive with absent Achilles responses. Gait: The patient uses a walker for ambulation. IMPRESSION: 1. Breakthrough seizure. The patient has not had any recurrent seizures since admission; however, he has been on IV phenytoin. 2. Left facial asymmetry secondary to previous stroke. 3. Dysphagia with abnormal video dysphagia test. Dysphagia is reported with all consistencies. 4. Other medical problems include gastroesophageal reflux disease. RECOMMENDATIONS: 1. Continue with current management initiated by Dr. Erickson. 2. The patient declined feeding tube placement. 3. The patient has been discharged to hospice. M Ben DIAZ MD DR: KARINA/caro JOB#: [id number] / [id number]
== END 2019-01-31 16:30 | DRG 101 ==
LOC: ER 03:31 → 1 SOUTH 04:55
PROVIDERS: ADMIT Family Medicine; ATTEND Family Medicine
DX: G40.409 Other generalized epilepsy and epileptic syndromes, not intractable, without status epilepticus (principal); I69.351 Hemiplegia and hemiparesis following cerebral infarction affecting right dominant side; K21.9 Gastro-esophageal reflux disease without esophagitis; I10 Essential (primary) hypertension; R13.10 Dysphagia, unspecified; Z66 Do not resuscitate; Z87.891 Personal history of nicotine dependence; Z91.19 Patient's noncompliance with other medical treatment and regimen
CPT/HCPCS: 36415; 70450; 71045; 74230; 80053; 80185; 81001; 84484; 85025; 85027; 93005; 96374; 96375; J1200; J2060; J3490; Q0163; Q2009; 92610; 92611; 97110; 97116; 97530; 99285-25; J7030

== ENCOUNTER 2019-02-18 03:23 | Inpatient (IN) | payer MEDICARE ==
[~2019-02-18] VITALS: Ht 167.6 cm; Wt 60.3 kg
--- NOTE | 2019-02-18 03:30 | PHYS DOC ---
Past History Past Medical History: CVA, GERD, Hypertension, Seizure, TIA Past Surgical History: Other Alcohol Use: Sober Drug Use: None Adult General Chief Complaint Chief Complaint: seizure HPI HPI Patient is a 73-year-old male who presents with report of seizure 3 this evening. Patient is resident at nursing facility and patient reportedly had his third seizure tonight lasting approximately 5 minutes. Nursing staff describes seizures tonic-clonic. Patient is on Dilantin for seizures but they have not checked a Dilantin level for some time now. Patient denies any complaints at this time. He denies any chest pain, shortness of breath, abdominal pain, nausea , vomiting, headache. Patient did not bite his tongue and was not incontinent of urine or stool. Review of Systems Review of Systems Constitutional: Denies fever or chills [] Respiratory: Denies cough or shortness of breath [] Cardiovascular: No additional information not addressed in HPI [] GI: Denies abdominal pain, nausea, vomiting, bloody stools or diarrhea [] Musculoskeletal: Denies back pain or joint pain [] Integument: Denies rash or skin lesions [] Neurologic: Positive seizure activity without focal weakness or sensory changes [] All other systems were reviewed and found to be within normal limits, except as documented in this note. Allergies Allergies Allergies Coded Allergies Type Severity Reaction Last Updated Verified aspirin Allergy Intermediate 01/26/19 Yes lisinopril Allergy Intermediate 01/26/19 Yes Physical Exam Physical Exam Constitutional: Well developed, well nourished, no acute distress, non-toxic appearance. [] HENT: Normocephalic, atraumatic, bilateral external ears normal, oropharynx moist, no oral exudates, nose normal. [] Eyes: PERRLA, EOMI, conjunctiva normal, no discharge. [] Neck: Normal range of motion, no tenderness, supple, no stridor. [] Cardiovascular: Regular rate and rhythm[] Lungs & Thorax: Bilateral breath sounds clear to auscultation [] Abdomen: Bowel sounds normal, soft, no tenderness. [] Skin: Warm, dry, no erythema, no rash. [] Extremities: No tenderness, no cyanosis, no clubbing, ROM intact, no edema. [] Neurologic: Awake and alert, no focal deficits noted. [] EKG EKG [] Radiology/Procedures Radiology/Procedures [] Course & Med Decision Making Course & Med Decision Making Pertinent Labs and Imaging studies reviewed. (See chart for details) [] Dragon Disclaimer Dragon Disclaimer This electronic medical record was generated, in whole or in part, using a voice recognition dictation system. Departure Departure: Impression: Primary Impression: Recurrent seizures Disposition: ADMITTED INPATIENT Admitting Physician: Tu Estrada Condition: IMPROVED Referrals: TU ESTRADA MD (PCP) SCOTTY ROMEO Jr. DO Feb 18, 2019 03:30
--- NOTE | 2019-02-18 03:59 | EKG ---
[address] [address] Test Date: 2019-02-18 Test Time: 03:56:43 Pat Name: MAISHA PURCELL Department: Room: Gender: M Plastics Technician: : 1945 Requested By: SCOTTY ROMEO Order Number: [id number] Reading MD: Eliezer Key MD Measurements Intervals [place] Rate: 72 P: 29 NM: 160 QRS: -21 QRSD: 78 T: 54 QT: 388 QTc: 426 Interpretive Statements SINUS RHYTHM VENTRICULAR PREMATURE COMPLEX(ES), TRIGEMINY Electronically Signed On 02-21-2019 12:21:16 CDT by Eliezer Key MD
[2019-02-18 04:11] LABS: BASO % 1 % (0-3); EOS % 0 % (0-3); HEMOGLOBIN 13.5 g/dL (13.0-17.5); LYMPH # 1.6 x10^3/uL (1.0-4.8); LYMPH % 19 % (24-48); MEAN CORPUSCULAR HEMOGLOBIN 33 pg (25-35); MEAN CORPUSCULAR HGB CONC 34 g/dL (31-37); MEAN CORPUSCULAR VOLUME 98 fL (79-100); MONO # 0.7 x10^3/uL (0.0-1.1); MONO % 8 % (0-9); NEUT # 6.1 x10^3uL (1.8-7.7); NEUT % 73 % (31-73); PLATELET COUNT 274 x10^3/uL (140-400); RED BLOOD COUNT 4.07 x10^6/uL (4.30-5.70); RED CELL DISTRIBUTION WIDTH 12.8 % (11.5-14.5); WHITE BLOOD COUNT 8.4 x10^3/uL (4.0-11.0)
[2019-02-18 08:13] LABS: ALBUMIN 3.6 g/dL (3.4-5.0); ALBUMIN/GLOBULIN RATIO 0.9 (1.0-1.7); ALK PHOS 75 U/L (46-116); ALT (SGPT) 16 U/L (16-63); ANION GAP 14 (6-14); AST (SGOT) 15 U/L (15-37); BLOOD UREA NITROGEN 12 mg/dL (8-26); BUN/CREATININE RATIO 9 (6-20); CALCIUM 9.1 mg/dL (8.5-10.1); CARBON DIOXIDE 24 mmol/L (21-32); CHLORIDE 103 mmol/L (98-107); CREATININE 1.4 mg/dL (0.7-1.3); GFR 59.8; GLUCOSE 107 mg/dL (70-99); PHENY 0.9 mcg/mL (10.0-20.0); POTASSIUM 4.3 mmol/L (3.5-5.1); SODIUM 141 mmol/L (136-145); TOTAL BILIRUBIN 0.4 mg/dL (0.2-1.0); TOTAL PROTEIN 7.4 g/dL (6.4-8.2)
[2019-02-18 08:24] VITALS: BP 125/71
[2019-02-18 09:03] LABS: BACTERIA,URINE FEW /HPF (0-FEW); BILIRUBIN,URINE NEG (NEG); CLARITY,URINE CLEAR; COLOR,URINE YELLOW; GLUCOSE,URINE NEG (NEG); NITRITE,URINE NEG (NEG); RBC,URINE 0 /HPF (0-2); SQUAMOUS EPITHELIAL CELL,UR FEW /LPF; UROBILINOGEN,URINE 0.2 mg/dL (0.2 mg/dL); WBC,URINE 0 /HPF (0-4)
[2019-02-18] MEDS ORDERED: FOSPHENYTOIN IV ONE (09:30)
[2019-02-18] MEDS ORDERED: NORMAL SALINE IV ONE (09:30)
[2019-02-18] MEDS: IV NORMAL SALINE 1,000ML 1,000 ML IV SCH (10:15)
--- NOTE | 2019-02-18 10:46 | HP ---
ADMIT DATE: 02/18/2019 HISTORY OF PRESENT ILLNESS: The patient is a 73-year-old gentleman with history of mental retardation, lives at a detention, apparently had grand mal seizure activity. The patient apparently was not getting proper doses of his medication and had grand mal seizure as level of his Dilantin was 0.9. The patient otherwise was resting fairly comfortably and making fairly good comfortably at the present time, so came in through the Emergency Room. The patient is not able to really give any type of a history as he has marked medical individual problems as indicated. PAST MEDICAL HISTORY: He has had a history of stroke, left-sided residual is fairly severe. He has trouble talking, hearing he also has problems. No other medical problems except for some hypertension. ALLERGIES: ASPIRIN, LISINOPRIL. FAMILY HISTORY: We were not able to get any type of family history from him. SOCIAL HISTORY: The patient no smoking, alcohol or drug use. Lives at the nursing facilities. REVIEW OF SYSTEMS: The patient unable to give any type of review of systems. PHYSICAL EXAMINATION: GENERAL: He is a pleasant -[place]ib[place] gentleman, in no apparent distress at the present time, little postictal. VITAL SIGNS: Blood pressure 125/70, respiration 22, pulse 76, afebrile. HEENT: The patient's head was atraumatic, normocephalic. Eyes: PERRLA without jaundice. Mouth and throat were normal. NECK: Supple, without JVD, carotid bruits. No thyromegaly. LUNGS: Diminished throughout, but clear. CARDIOVASCULAR: Regular sinus rhythm. ABDOMEN: Soft, nontender. EXTREMITIES: No clubbing, cyanosis or edema. NEUROLOGIC: Intact. The patient has had trouble verbalization and has trouble extremities. Plantars were down. Reflexes were brisk. IMPRESSION AND PLAN: The patient will be monitored carefully, placed on Celebrex by Dr. Mejias and neurologist who will handle the seizure activity. Apparently, he has noted the patient was receiving a low dose Dilantin. In any case, the patient made good progress during the rest of his hospitalization. He will be continued to be monitored and he will be resting in bed and will be adjusted on his Dilantin level. We will recheck that in the morning. The patient's grand mal seizure activity is secondary to subtherapeutic dose, history of post-CVA, continue to monitor the patient accordingly and seizure precautions by the nursing staff. LEESA MATA MD DR: MALA/caro JOB#: [id number] / [id number]
[2019-02-18 10:55] VITALS: BP 132/73
[2019-02-18 15:02] VITALS: BP 135/77
[2019-02-18 16:53] LABS: PHENY 29.2 mcg/mL (10.0-20.0)
[2019-02-18 19:30] VITALS: BP 127/70
[2019-02-18 22:20] VITALS: BP 151/79
[2019-02-19 05:46] VITALS: BP 149/77
--- NOTE | 2019-02-19 10:07 | CONS ---
DATE OF CONSULTATION: 02/18/2019 NEUROLOGY CONSULTATION REFERRING PHYSICIAN: Dr. Estrada. REASON FOR CONSULTATION: Breakthrough seizure. HISTORY OF PRESENT ILLNESS: This is a 73-year-old right-handed -[place] Islander male who was admitted through Emergency Room after he presented with recurrent seizure activity described as generalized tonic-clonic seizure. Apparently, it was reported that the patient had 3 generalized seizures of grand mal type at the custodial. EMS was activated and transferred the patient to the Emergency Room when he had another seizure described as above. The patient was found to have been receiving Dilantin at 30 mg daily instead of 300 mg at the custodial. His Dilantin level was 0.9 in the Emergency Room. The patient was given Ativan after the last seizure and transferred to the floor. Neuro consult was requested for further evaluation. The patient did not recall the event. He did not have any urinary or bladder incontinence or tongue biting. The patient has not had any witnessed seizure on the floor. Currently, he denies headaches, visual disturbances, nausea, vomiting, chest pain, shortness of breath or palpitation, dysarthria or dysphagia. The patient is known to us from recent admission to the same floor a few weeks ago after he presented with mental status changes and severe dysphagia with high risk of aspiration. The patient refused feeding tube and he has been recently on a pureed diet, which he did not like; however, it was reported the patient started eating again. PAST MEDICAL HISTORY: Significant for stroke resulted in generalized weakness, more prominent on the left side; bilateral hearing loss; severe dysphagia with risk of aspiration; hypertension; GERD; and possible TIA. SOCIAL HISTORY: The patient denies smoking, alcohol drinking, or illicit drug use. FAMILY HISTORY: Noncontributory. CURRENT MEDICATIONS PRIOR TO THE ADMISSION: Supposed to be phenytoin 300 mg daily. ALLERGIES: ASPIRIN AND LISINOPRIL. REVIEW OF SYSTEMS: A 10-point review of system was performed as mentioned above in history of present illness. PHYSICAL EXAMINATION: GENERAL: Well-developed, well-nourished male, not in acute distress. VITAL SIGNS: Blood pressure 125/71, respiratory rate 22, pulse is 53, temperature 97.7, oxygen saturation 95% on room air. HEENT: Normocephalic, atraumatic, otherwise unremarkable. NECK: Supple. Negative for carotid bruit, lymphadenopathy, or thyromegaly. LUNGS: Clear to A and P. CARDIOVASCULAR: Regular rhythm, normal S1, S2. There is no S3, S4, or murmurs. ABDOMEN: Soft. Bowel sounds are positive. No palpable mass, organomegaly, or tenderness. EXTREMITIES: Negative for cyanosis, clubbing, or pitting edema. NEUROLOGICAL EXAM: MENTAL STATUS: The patient is alert and oriented x 3. Speech is fluent. There is no language dysfunction. The patient recalls 2/3 immediately and 1/3 after 1 and 3 minutes. Judgment and abstract thinking are fair. The patient denies hallucination or delusion. CRANIAL NERVES: Visual perez are full. The pupils are reactive to light and accommodation. The extraocular movements are intact. There is no nystagmus. There is no facial motor or sensory deficit. Hearing is intact bilaterally. The palate is elevated symmetrically. Sternocleidomastoid muscles are powerful bilaterally. The patient shrugs his shoulders symmetrically and protrudes his tongue in the midline without fasciculation or atrophy. MOTOR: No focal muscle bulk was seen. The tone is normal. The strength is 4/5 throughout. SENSORY: Normal pinprick and light touch senses throughout. DEEP TENDON REFLEXES: Were asymmetric and hypoactive with absent Achilles responses. Gait not tested at this time. LABORATORY DATA: CBC revealed white blood cells of 8.4000, hemoglobin 13.5, hematocrit 40, platelet count 274,000. Chemistry revealed sodium 141, potassium 4.3, chloride 103, CO2 14, BUN 12, creatinine 1.4, glucose 107, calcium 9.1. Liver enzymes are normal. Phenytoin is 0.9. Urinalysis is negative for urinary tract infection, IMPRESSION: 1. Breakthrough seizure described as frequent generalized tonic-clonic seizure of grand mal type likely due to a subtherapeutic dose of phenytoin in a patient with longstanding history of seizure, probably due to previous stroke. 2. Multiple medical problems include history of hypertension and dysphagia with risk of aspiration. 3. History of stroke with residual of generalized weakness. 4. Gastroesophageal reflux disease and bilateral hearing loss. RECOMMENDATIONS: 1. We will start Cerebyx loading dose at 18 mg/kg intravenously. 2. We will check a phenytoin level after 6 hours. 3. We will resume previous maintenance dose of phenytoin at 300 mg daily. 4. Check Dilantin level on 02/19/2019. M Ben DIAZ MD DR: Bennie JOB#: [id number] / [id number]
[2019-02-19 12:17] LABS: PHENY 24.1 mcg/mL (10.0-20.0)
[2019-02-19] MEDS: IV NORMAL SALINE 1,000ML 1,000 ML IV SCH ×3 (12:45→22:52)
--- NOTE | 2019-02-19 14:06 | PN ---
DATE: SUBJECTIVE: A 73-year-old male in with seizure activity and we gave him a ____ IV for seizures and now it is little bit too high. He is resting fairly comfortably, making fairly good progress. We will continue to monitor him. OBJECTIVE: VITAL SIGNS: Otherwise, blood pressure 150/70, respiration is 16, pulse 50, afebrile. GENERAL: The patient is alert, still has some mild dementia of course. LUNGS: Diminished throughout, poor movement of air Otherwise, no seizure activity reported by nursing, we will try to adjust his oral doses of Dilantin before being discharged home. IMPRESSION: Seizure activity due to subtherapeutic doses of Dilantin. LEESA MATA MD DR: MALA/nts JOB#: [id number] / [id number]
[2019-02-19 15:31] VITALS: BP 102/63
[2019-02-19 19:20] VITALS: BP 131/63
[2019-02-19] MEDS ORDERED: PHENYTOIN SODIUM EXTENDED 100 MG CAPSULE PO SCH (23:00)
[2019-02-19 23:05] VITALS: BP 146/83
--- NOTE | 2019-02-20 02:03 | PN ---
DATE: SUBJECTIVE: The patient denies any new medical or neurological complaints. He has not had any seizures since admission. The patient started drinking and eating. OBJECTIVE: GENERAL: Well-developed, well-nourished male, not in acute distress. VITAL SIGNS: Blood pressure 131/63, respiratory rate 22, pulse is 55, temperature 99.1, oxygen saturation 95% on room air. HEENT: Normocephalic, atraumatic, otherwise unremarkable. NECK: Supple. Negative for carotid bruit, lymphadenopathy, or thyromegaly. LUNGS: Clear to A and P. CARDIOVASCULAR: Regular rhythm, normal S1, S2. ABDOMEN: Soft. Bowel sounds positive. EXTREMITIES: Negative for cyanosis, clubbing, or pitting edema. NEUROLOGIC: Mental status: The patient was alert and oriented to time and place. The speech was fluent. There was no language dysfunction. Cranial nerves were grossly intact. Motor examination revealed no focal muscle bulk was seen. The strength was 4/5 throughout. Sensory examination revealed normal pinprick and light touch senses throughout. Deep tendon reflexes were symmetric and hypoactive and absent Achilles responses. Gait not tested. LABORATORY DATA: Dilantin level is 24.1. IMPRESSION: 1. Breakthrough seizure described as generalized tonic-clonic seizure of grand mal type. 2. History of seizure disorder, probably due to previous stroke. 3. Multiple medical problems: Hypertension; recent diagnosis of dysphagia, however the patient has been eating; gastroesophageal reflux disease; bilateral hearing loss. RECOMMENDATIONS: Continue with current management and continue with phenytoin 300 mg daily. M Ben DIAZ MD DR: KARINA/caro JOB#: [id number] / [id number]
[2019-02-20 05:42] VITALS: BP 138/71
[2019-02-20 09:27] LABS: PHENY 19.7 mcg/mL (10.0-20.0)
--- NOTE | 2019-02-20 10:10 | DS ---
DATE OF DISCHARGE: HOSPITAL COURSE: A 73-year-old gentleman came in with grand mal seizure activity. Apparently had been on a lower dose of Dilantin and was therapeutic. The patient made excellent progress during his hospitalization. Dr. Mejias saw her initially on Ativan and then Celebrex to control the seizure activity. They were under good control. He was brought under with oral phenytoin to therapeutic range and he was discharged back to the nursing facility from which he came. His last level was 19 on 300 mg at bedtime. IMPRESSION: Generalized tonic-clonic seizure of grand mal type due to subtherapeutic dose. Multiple other medical problems post-stroke with generalized weakness, history of gastroesophageal reflux disease, bilateral hearing loss and some speech difficulties. He has a history of hypertension and dysphagia with the possible risk of aspiration. DISCHARGE PLAN: Aspiration precautions should be taken at the nursing facility. Otherwise, see MRAD and decreased activity. LEESA MATA MD DR: MALA/caro JOB#: [id number] / [id number]
[2019-02-20 11:06] VITALS: BP 121/65
--- NOTE | 2019-02-20 13:00 | PN ---
DATE: 02/20/2019 SUBJECTIVE: The patient denies any new medical or neurological complaints. He feels good. He eats and drinks well. OBJECTIVE: GENERAL: A well-developed, well-nourished -Liberian male, not in acute distress. VITAL SIGNS: Blood pressure 138/71, respiratory rate 22, pulse is 53, oxygen saturation is 98% on room air, and temperature 98.2. HEENT: Normocephalic, atraumatic, otherwise unremarkable. NECK: Supple. Negative for carotid bruit, lymphadenopathy or thyromegaly. LUNGS: Clear to A and P. CARDIOVASCULAR: Regular rhythm, normal S1, S2. There is no S3, S4, or murmur. ABDOMEN: Soft. Bowel sounds positive. EXTREMITIES: Negative for cyanosis, clubbing or pitting edema. NEUROLOGIC: Mental status: The patient is alert and oriented x 3. Speech is fluent. There is no language dysfunction. Memory, judgment, and abstract thinking are fair. The patient denies hallucination or delusion. Cranial nerves are grossly intact. No focal motor or sensory deficit. The strength was 4/5 throughout. Sensory examination revealed normal pinprick, light touch senses throughout. Deep tendon reflexes were symmetric and hypoactive with absent Achilles responses. Gait not tested. The patient confined to a wheelchair. LABORATORY DATA: Dilantin level this morning was 19.7. IMPRESSION: 1. Breakthrough seizure due to subtherapeutic of Dilantin with current therapeutic level. 2. History of seizure disorder, probably due to previous stroke. 3. History of seizure with gait disturbance, dysphagia, gastroesophageal reflux disease, and bilateral hearing loss. RECOMMENDATIONS: Continue with current management and medications. The patient is neurologically stable. M Ben DIAZ MD DR: KARINA/caro JOB#: [id number] / [id number]
== END 2019-02-20 14:08 | DRG 101 ==
LOC: ER 03:23 → 1 SOUTH 05:39
PROVIDERS: ADMIT Family Medicine; ATTEND Family Medicine
DX: G40.409 Other generalized epilepsy and epileptic syndromes, not intractable, without status epilepticus (principal); I10 Essential (primary) hypertension; K21.9 Gastro-esophageal reflux disease without esophagitis; Z86.73 Personal history of transient ischemic attack (TIA), and cerebral infarction without residual deficits; Z88.6 Allergy status to analgesic agent; Z88.8 Allergy status to other drugs, medicaments and biological substances
CPT/HCPCS: 36415; 80053; 80185; 81001; 85025; 87641; 93005; J2060; Q2009; 99285-25; J7030

== ENCOUNTER 2019-03-01 17:13 | Inpatient (IN) | payer MEDICARE ==
[~2019-03-01] VITALS: Ht 167.6 cm; Wt 58.6 kg
--- NOTE | 2019-03-01 17:41 | PHYS DOC ---
Past History Past Medical History: CVA, GERD, Hypertension, Seizure, Stroke, TIA, Other (SCOTTY ROSS Jr. DO) Past Surgical History: No Surgical History (SCOTTY ROSS Jr. DO) Alcohol Use: Sober Drug Use: None (SCOTTY ROSS Jr. DO) Adult General Chief Complaint Chief Complaint: ABNORMAL LABS [facility] HPI Patient is a 73-year-old male who presents with report of Dilantin toxicity with elevated Dilantin level. Patient reportedly was complaining of symptoms of blurred vision and abnormal movements of his hands along was some slurred speech and staff ordered a Dilantin level on him. Patient states that the movements of his hands is improved currently. He still complains of blurred vision and slurred speech however. He denies any chest pain or shortness of breath. He also denies any headache, nausea or vomiting. (SCOTTY ROSS Jr. DO) Review of Systems Review of Systems Constitutional: Denies fever or chills [] Eyes: Complains of blurred vision without eye pain [] Respiratory: Denies cough or shortness of breath [] Cardiovascular: No additional information not addressed in HPI [] GI: Denies abdominal pain, nausea, vomiting or diarrhea [] Integument: Denies rash or skin lesions [] Neurologic: Complains of slurred speech, controlled, jerky movements of his hands without focal weakness or sensory changes [] All other systems were reviewed and found to be within normal limits, except as documented in this note. (SCOTTY ROSS Jr. DO) Allergies Allergies Allergies Coded Allergies Type Severity Reaction Last Updated Verified aspirin Allergy Intermediate 02/18/19 Yes lisinopril Allergy Intermediate 02/18/19 Yes (SCOTTY ROSS Jr. DO) Physical Exam Physical Exam Constitutional: Well developed, well nourished, no acute distress, non-toxic appearance. [] HENT: Normocephalic, atraumatic, bilateral external ears normal, oropharynx mo ist, no oral exudates, nose normal. [] Eyes: PERRLA, EOMI, conjunctiva normal, no discharge. [] Neck: Normal range of motion, no tenderness, supple, no stridor. [] Cardiovascular:Heart rate regular rhythm, no murmur [] Lungs & Thorax: Bilateral breath sounds clear to auscultation [] Abdomen: Bowel sounds normal, soft, no tenderness. [] Skin: Warm, dry, no erythema, no rash. [] Extremities: No tenderness, no cyanosis, no clubbing, ROM intact. [] Neurologic: Awake and alert, no focal deficits noted. [] (SCOTTY ROSS Jr., DO) Physical Exam Constitutional: Well developed, well nourished, no acute distress, non-toxic appearance. [] HENT: Normocephalic, atraumatic, oropharynx tachy, edentulous Eyes: PERRL, EOMI, conjunctiva normal, horizontal nystagmus noted Neck: Normal range of motion, no tenderness, supple Cardiovascular: Heart rate bradycardic with regular rhythm Lungs & Thorax: Bilateral breath sounds clear to auscultation, no respiratory distress Abdomen: Soft, no tenderness. [] Skin: Warm, dry, no erythema, no rash. [] Extremities: No tenderness, ROM intact. [] Neurologic: Awake and alert, sensation intact, motor function intact, no focal deficits noted. [] (TED JEAN DO) EKG EKG [] (SCOTTY ROSS Jr., DO) EKG @1740 Sinus bradycardia at 59bpm, NO ST elevation, occasional PVC, QRS 76ms, QT/QTc 412/412ms (TED JEAN DO) Radiology/Procedures Radiology/Procedures [] (SCOTTY ROSS Jr., DO) Course & Med Decision Making Course & Med Decision Making Pertinent Labs and Imaging studies reviewed. (See chart for details) Patient moved to room upon arrival was evaluated by your medical staff after which a workup was initiated. At this time, workup is pending and patient is being signed out to oncoming ER physician, Dr. Jean, at 6:00 PM. (SCOTTY ROSS Jr., DO) Course & Med Decision Making Sign out received from Dr. Ross for patient with concern for elevated phenytoin level. Patient seen and evaluated by myself. Patient's VS stable. Patient had received IVF hydration. Reports feeling better than when he presented to ED. Labs reviewed. Poison control had been previously contacted by hospital staff pharmacist with recommendation of supportive care and recheck level in 4 hours. Given patient's comorbidities, decision to admit patient for further evaluation and observation. Patient requiring admission for further evaluation and treatment. Discussed with Dr. Mata (PCP) who is in agreement with admission. Discussed findings and plan with patient, who acknowledges understanding and agreement. (TED JEAN DO) Dragon Disclaimer Dragon Disclaimer This electronic medical record was generated, in whole or in part, using a voice recognition dictation system. (SCOTTY ROSS Jr. DO) Departure Departure: Impression: Primary Impression: Dilantin toxicity Disposition: ADMITTED INPATIENT Condition: GUARDED Referrals: LEESA MATA MD (PCP) Problem Qualifiers Primary Impression: Dilantin toxicity Encounter type: initial encounter Injury intent: accidental or unintentional Qualified Codes: T42.0X1A - Poisoning by hydantoin derivatives, accidental (unintentional), initial encounter SCOTTY ROSS Jr., DO March 01, 2019 17:41 TED JEAN DO March 01, 2019 20:23
[2019-03-01] MEDS ORDERED: IV NORMAL SALINE 1,000ML 1,000 ML IV ONE ×2 (17:45→19:45)
[2019-03-01 17:47] LABS: BASO % 1 % (0-3); EOS % 1 % (0-3); HEMATOCRIT 39.8 % (39.0-53.0); HEMOGLOBIN 13.3 g/dL (13.0-17.5); LYMPH # 2.1 x10^3/uL (1.0-4.8); LYMPH % 39 % (24-48); MEAN CORPUSCULAR HEMOGLOBIN 33 pg (25-35); MEAN CORPUSCULAR HGB CONC 33 g/dL (31-37); MEAN CORPUSCULAR VOLUME 99 fL (79-100); MONO # 0.6 x10^3/uL (0.0-1.1); MONO % 11 % (0-9); NEUT # 2.6 x10^3uL (1.8-7.7); NEUT % 49 % (31-73); PLATELET COUNT 256 x10^3/uL (140-400); RED BLOOD COUNT 4.04 x10^6/uL (4.30-5.70); RED CELL DISTRIBUTION WIDTH 12.9 % (11.5-14.5); WHITE BLOOD COUNT 5.3 x10^3/uL (4.0-11.0)
[2019-03-01 17:56] LABS: BILIRUBIN,URINE NEG (NEG); CLARITY,URINE CLOUDY; COLOR,URINE AMBER; GLUCOSE,URINE NEG (NEG)
[2019-03-01 17:57] LABS: BACTERIA,URINE 0 /HPF (0-FEW); NITRITE,URINE NEG (NEG); RBC,URINE 0 /HPF (0-2); SQUAMOUS EPITHELIAL CELL,UR OCC /LPF; UROBILINOGEN,URINE 1 mg/dL (0.2 mg/dL); WBC,URINE 0 /HPF (0-4)
--- NOTE | 2019-03-01 18:00 | EKG ---
[address] [address] Test Date: 2019-03-01 Test Time: 17:40:14 Pat Name: MAISHA PURCELL Department: Room: Gender: M Wax Room Supervisor: SANIA : 1945 Requested By: SCOTTY ROMEO Order Number: [id number] Reading MD: Manish Ruiz Measurements Intervals [place] Rate: 59 P: 37 DE: 158 QRS: -22 QRSD: 76 T: 74 QT: 412 QTc: 412 Interpretive Statements SINUS RHYTHM VENTRICULAR PREMATURE COMPLEX(ES) LEFTWARD AXIS NONSPECIFIC ST-T WAVE CHANGES. Electronically Signed On 03-03-2019 9:59:29 CDT by Manish Ruiz
[2019-03-01 18:04] LABS: ALBUMIN 3.9 g/dL (3.4-5.0); ALK PHOS 88 U/L (46-116); ALT (SGPT) 14 U/L (16-63); ANION GAP 6 (6-14); AST (SGOT) 13 U/L (15-37); BLOOD UREA NITROGEN 15 mg/dL (8-26); CALCIUM 8.8 mg/dL (8.5-10.1); CARBON DIOXIDE 32 mmol/L (21-32); CHLORIDE 105 mmol/L (98-107); CREATININE 1.1 mg/dL (0.7-1.3); DIRECT BILIRUBIN 0.1 mg/dL (0.0-0.2); GLUCOSE 82 mg/dL (70-99); MAGNESIUM 1.9 mg/dL (1.8-2.4); POTASSIUM 4.1 mmol/L (3.5-5.1); SODIUM 143 mmol/L (136-145); TOTAL BILIRUBIN 0.3 mg/dL (0.2-1.0); TOTAL PROTEIN 7.8 g/dL (6.4-8.2)
[2019-03-01 18:11] LABS: PHENY 43.1 mcg/mL (10.0-20.0)
[2019-03-01] MEDS ORDERED: ONDANSETRON PF 4 MG/2 ML VIAL. IV PRN (19:45)
[2019-03-01 21:20] VITALS: BP 158/95
[2019-03-01 21:45] LABS: PHENY 40.3 mcg/mL (10.0-20.0)
[2019-03-01] MEDS: IV NORMAL SALINE 1,000ML 1,000 ML IV SCH (22:30)
[2019-03-01] MEDS ORDERED: PHEN100C PO (22:53)
[2019-03-01 23:04] VITALS: BP 127/78
[2019-03-02 06:06] VITALS: BP 154/74
[2019-03-02 06:57] LABS: BASO # 0.1 x10^3/uL (0.0-0.2); BASO % 2 % (0-3); EOS % 1 % (0-3); HEMATOCRIT 40.7 % (39.0-53.0); HEMOGLOBIN 13.6 g/dL (13.0-17.5); LYMPH # 1.7 x10^3/uL (1.0-4.8); LYMPH % 34 % (24-48); MEAN CORPUSCULAR HEMOGLOBIN 33 pg (25-35); MEAN CORPUSCULAR HGB CONC 34 g/dL (31-37); MEAN CORPUSCULAR VOLUME 99 fL (79-100); MONO # 0.5 x10^3/uL (0.0-1.1); MONO % 11 % (0-9); NEUT # 2.6 x10^3uL (1.8-7.7); NEUT % 52 % (31-73); PLATELET COUNT 196 x10^3/uL (140-400); RED BLOOD COUNT 4.12 x10^6/uL (4.30-5.70); WHITE BLOOD COUNT 4.9 x10^3/uL (4.0-11.0)
[2019-03-02 07:05] LABS: ALBUMIN 3.5 g/dL (3.4-5.0); ALK PHOS 82 U/L (46-116); ALT (SGPT) 10 U/L (16-63); ANION GAP 7 (6-14); AST (SGOT) 14 U/L (15-37); BLOOD UREA NITROGEN 9 mg/dL (8-26); BUN/CREATININE RATIO 10 (6-20); CALCIUM 8.7 mg/dL (8.5-10.1); CARBON DIOXIDE 28 mmol/L (21-32); CHLORIDE 106 mmol/L (98-107); CREATININE 0.9 mg/dL (0.7-1.3); GFR 99.5; GLUCOSE 96 mg/dL (70-99); SODIUM 141 mmol/L (136-145); TOTAL BILIRUBIN 0.5 mg/dL (0.2-1.0); TOTAL PROTEIN 7.1 g/dL (6.4-8.2)
[2019-03-02 07:12] LABS: PHENY 43.1 mcg/mL (10.0-20.0)
[2019-03-02] MEDS: IV NORMAL SALINE 1,000ML 1,000 ML IV SCH ×2 (08:50→21:00)
--- NOTE | 2019-03-02 10:15 | HP ---
ADMIT DATE: 03/01/2019 HISTORY OF PRESENT ILLNESS: The patient is a 73-year-old gentleman from the snf, came in apparently, he was complaining of blurred vision and abnormal movements of his hands along with some slurred speech. The patient had a Dilantin level ordered on this 73-year-old -[place]ypriot male and was noted to be approximately 45. The patient uses this for seizure activity. Because of his symptoms, as well as the elevation in the Dilantin levels, the patient was admitted to the hospital for further evaluation and control of his toxicity of the Dilantin. PAST MEDICAL HISTORY: He has had a history of CVA with left-sided residual, epilepsy, hypertension, GERD, incontinence, urgency, urinary retention, and dysphagia. PAST SURGICAL HISTORY: The patient has an allergy to ASPIRIN and LISINOPRIL. FAMILY HISTORY: Unremarkable. MEDICATIONS: He just takes ___ phenytoin 300 mg daily. SOCIAL HISTORY: No smoking, alcohol, or drug use. Lives out at a nursing facility. REVIEW OF SYSTEMS: Really is a very pleasant gentleman. He has no other complaints except for this blurred vision and shakiness in his hands. PHYSICAL EXAMINATION: GENERAL: The patient in turn on exam is a very pleasant gentleman. The patient is alert. At baseline for him, he has some difficulty with his speech, but other than that seems to be doing reasonably well. VITAL SIGNS: Blood pressure 155/90, respiratory rate 22, pulse in the 50s, afebrile. LUNGS: Clear. CARDIOVASCULAR: Regular sinus rhythm, melani. ABDOMEN: Soft, nontender. EXTREMITIES: No clubbing, cyanosis, edema. NEUROLOGIC: The patient is alert, baseline for him. He has some mild nystagmus noted consistent with the Dilantin toxicity. Other than that, the patient's reflexes are basically stable. The patient has weakness in his legs from his previous stroke, so requires a wheelchair to move around. In any case noted the patient's CBC was all normal. Chemistries were normal except for actually low liver enzymes and his Dilantin level remains in the low 40s. We will continue to monitor on that, hold his Dilantin for now and he will need to be adjusted when he goes back to the snf. IMPRESSION: Phenytoin toxicity. PLAN: As above. LEESA MATA MD DR: Jose Carlos JOB#: [id number] / [id number]
[2019-03-02 11:17] VITALS: BP 126/63
[2019-03-02 14:27] VITALS: BP 130/79
[2019-03-02 18:14] LABS: PHENY 39.2 mcg/mL (10.0-20.0)
[2019-03-02 18:30] VITALS: BP 163/73
[2019-03-02 23:40] VITALS: BP 159/81
[2019-03-03 05:00] VITALS: BP 166/78
[2019-03-03 06:22] LABS: BASO # 0.1 x10^3/uL (0.0-0.2); BASO % 1 % (0-3); EOS # 0.1 x10^3/uL (0.0-0.7); EOS % 2 % (0-3); HEMATOCRIT 37.7 % (39.0-53.0); HEMOGLOBIN 12.8 g/dL (13.0-17.5); LYMPH # 1.2 x10^3/uL (1.0-4.8); LYMPH % 28 % (24-48); MEAN CORPUSCULAR HEMOGLOBIN 33 pg (25-35); MEAN CORPUSCULAR HGB CONC 34 g/dL (31-37); MEAN CORPUSCULAR VOLUME 98 fL (79-100); MONO # 0.4 x10^3/uL (0.0-1.1); MONO % 10 % (0-9); NEUT # 2.6 x10^3uL (1.8-7.7); NEUT % 59 % (31-73); PLATELET COUNT 214 x10^3/uL (140-400); RED BLOOD COUNT 3.86 x10^6/uL (4.30-5.70); RED CELL DISTRIBUTION WIDTH 12.6 % (11.5-14.5); WHITE BLOOD COUNT 4.4 x10^3/uL (4.0-11.0)
[2019-03-03 06:26] LABS: ANION GAP 8 (6-14); BLOOD UREA NITROGEN 11 mg/dL (8-26); CALCIUM 8.6 mg/dL (8.5-10.1); CARBON DIOXIDE 28 mmol/L (21-32); CHLORIDE 107 mmol/L (98-107); CREATININE 0.9 mg/dL (0.7-1.3); GFR 99.5; GLUCOSE 98 mg/dL (70-99); PHENY 36.6 mcg/mL (10.0-20.0); POTASSIUM 4.2 mmol/L (3.5-5.1); SODIUM 143 mmol/L (136-145)
--- NOTE | 2019-03-05 22:50 | DS ---
DATE OF DISCHARGE: 03/03/2019 HOSPITAL COURSE: This is a 73-year-old male with history of seizure activity from the nursing facility who apparently came in and he was not feeling very well, complained of blurred vision and double vision. As a result of this, the patient was brought in and his labs demonstrated a marked elevation of his Dilantin level of 43. Poison Control was consulted and they stated to keep him in the hospital and monitor him until his levels drop down into the 30s, which did take a few days. The patient tolerated very well his blurred vision. Shakiness seemed to resolve and the patient was transferred [facility] to the [facility] where they will have continued monitoring of his Dilantin levels until he come back into range and then restart at approximately 100 mg of the phenytoin daily. Otherwise, the patient tolerated the procedure well of the hospitalization. IMPRESSION: Phenytoin toxicity, history of seizure activity, history of cardiovascular accident with left-sided residual, incontinence and urgency and urinary retention and dysphagia. The patient will be discharged home and followed up at the nursing facility. Continue on his home medications: See MRAD. LEESA MATA MD DR: MALA/caro JOB#: [id number] / [id number]
== END 2019-03-03 15:00 | DRG 92 ==
LOC: ER 17:13 → 1 SOUTH 19:30
PROVIDERS: ADMIT Family Medicine; ATTEND Family Medicine
DX: R47.81 Slurred speech (principal); I69.354 Hemiplegia and hemiparesis following cerebral infarction affecting left non-dominant side; T42.0X5A Adverse effect of hydantoin derivatives, initial encounter; G40.909 Epilepsy, unspecified, not intractable, without status epilepticus; I10 Essential (primary) hypertension; N39.41 Urge incontinence; H53.2 Diplopia; R13.10 Dysphagia, unspecified; R33.9 Retention of urine, unspecified; K21.9 Gastro-esophageal reflux disease without esophagitis; Z88.6 Allergy status to analgesic agent; Z88.8 Allergy status to other drugs, medicaments and biological substances; Y92.89 Other specified places as the place of occurrence of the external cause
CPT/HCPCS: 36415; 80048; 80053; 80076; 80185; 81001; 83735; 85025; 87641; 93005; 96360; 96361; 99285-25; J7030

== ENCOUNTER 2019-05-10 04:00 | Inpatient (IN) | payer MEDICARE ==
[~2019-05-10] VITALS: Ht 167.6 cm; Wt 57.3 kg
--- NOTE | 2019-05-10 04:10 | ED.ADGEN ---
Past History Past Medical History: CVA, GERD, Hypertension, Seizure, Stroke, TIA, Other Past Surgical History: No Surgical History Alcohol Use: Sober Drug Use: None Adult General Chief Complaint Chief Complaint "Okay.. " HPI HPI Patient is a 73 year old male who presents with above hx and complaints of Seizure. Pt. currently alert and responsive to questions. Pt. is a resident of [facility]. since 02/18/2019. Pt. has hx of tonic clonic seizure tonight and was post ictal. Pt. did not aroused with sternal rub per nursing. Pt. 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 Hx. 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 Pt. normally follows with Dr. Sakshi Rajput. Pt.has followed with Dr. Mata previously . Pt. has had prior evaluations for his seizure disorder. Pt. on last visit in 03/01- was found to be Dilantin toxic and his Dilantin was not restarted on return to the half-way after his discharge from hospital. Patient has history of ED visits in February 18, January 26 and for Seizure and sub- therapeutic Dilantin levels. Review of Systems Review of Systems Pt. currently has no complaints. Constitutional: Denies fever or chills [] Eyes: Denies change in visual acuity, redness, or eye pain [] HENT: Denies nasal congestion or sore throat [] Respiratory: Denies cough or shortness of breath [] Cardiovascular: No additional information not addressed in HPI [] GI: Denies abdominal pain, nausea, vomiting, bloody stools or diarrhea [] : Denies dysuria or hematuria [] Musculoskeletal: Denies back pain or joint pain [] Integument: Denies rash or skin lesions [] Neurologic: Denies headache, focal weakness or sensory changes [] Endocrine: Denies polyuria or polydipsia [] All other systems were reviewed and found to be within normal limits, except as documented in this note. Family History Family History Not currently available. Current Medications Current Medications Current Medications Medications (Trade) Dose Ordered Sig/Sam Start Time Stop Time Status Last Admin Dose Admin Lactated Ringer's 1,000 ml @ 100 mls/hr Q10H 05/10/19 04:30 05/10/19 14:29 DC 05/10/19 04:22 100 MLS/HR Lorazepam (Ativan Inj) 2 mg 1X ONCE 05/10/19 04:30 05/10/19 04:31 DC 05/10/19 04:21 2 MG Allergies Allergies Allergies Coded Allergies Type Severity Reaction Last Updated Verified aspirin Allergy Intermediate 02/18/19 Yes lisinopril Allergy Intermediate 02/18/19 Yes Physical Exam Physical Exam Constitutional: , no acute distress, non-toxic appearance. []Slurred speech. HENT: Normocephalic, atraumatic, bilateral external ears normal, oropharynx moist, no oral exudates, nose normal. Edentulous Eyes: PERRLA, EOMI, conjunctiva normal, no discharge. Arcus Neck: Normal range of motion, no tenderness, supple, no stridor. [] Cardiovascular:Heart rate regular rhythm, no murmur [. PMI to the left] Lungs & Thorax: Bilateral breath sounds equal apex on auscultation [] Abdomen: Bowel sounds normal, soft, no tenderness, no masses, no pulsatile masses. [] Skin: Warm, dry, no erythema, no rash. [] Back: No tenderness, no CVA tenderness. [] Extremities: No tenderness, no cyanosis, no clubbing, ROM intact, no edema. [Arthritic changes.] Neurologic: Alert and oriented X 3, left sided motor weakness on distal sensory function, no focal deficits noted from his previous baseline Psychologic: Affect normal, judgement normal, mood normal. [] Current Patient Data Vital Signs Vital Signs Date Time Temp Pulse Resp B/P (MAP) Pulse Ox O2 Delivery O2 Flow Rate FiO2 05/10/19 04:38 90 26 152/78 (102) 94 Room Air 05/10/19 04:00 97.9 Lab Results Laboratory Tests Test 05/10/19 04:15 White Blood Count 8.8 x10^3/uL (4.0-11.0) Red Blood Count 4.34 x10^6/uL (4.30-5.70) Hemoglobin 13.8 g/dL (13.0-17.5) Hematocrit 42.7 % (39.0-53.0) Mean Corpuscular Volume 98 fL (79-100) Mean Corpuscular Hemoglobin 32 pg (25-35) Mean Corpuscular Hemoglobin Concent 32 g/dL (31-37) Red Cell Distribution Width 12.5 % (11.5-14.5) Platelet Count 245 x10^3/uL (140-400) Neutrophils (%) (Auto) 62 % (31-73) Lymphocytes (%) (Auto) 27 % (24-48) Monocytes (%) (Auto) 9 % (0-9) Eosinophils (%) (Auto) 2 % (0-3) Basophils (%) (Auto) 1 % (0-3) Neutrophils # (Auto) 5.4 x10^3uL (1.8-7.7) Lymphocytes # (Auto) 2.4 x10^3/uL (1.0-4.8) Monocytes # (Auto) 0.8 x10^3/uL (0.0-1.1) Eosinophils # (Auto) 0.1 x10^3/uL (0.0-0.7) Basophils # (Auto) 0.1 x10^3/uL (0.0-0.2) Prothrombin Time 10.1 SEC (9.4-11.4) Prothrombin Time INR 1.0 (0.9-1.1) PTT 24 SEC (23-33) D-Dimer (Yadira) 1.07 mg/L (0.00-0.50) H Sodium Level 142 mmol/L (136-145) Potassium Level 4.2 mmol/L (3.5-5.1) Chloride Level 104 mmol/L (98-107) Carbon Dioxide Level 21 mmol/L (21-32) Anion Gap 17 (6-14) H Blood Urea Nitrogen 10 mg/dL (8-26) Creatinine 1.4 mg/dL (0.7-1.3) H Estimated GFR (Cockcroft-Gault) 59.8 Glucose Level 115 mg/dL (70-99) H Calcium Level 9.4 mg/dL (8.5-10.1) Magnesium Level 2.0 mg/dL (1.8-2.4) Total Bilirubin 0.6 mg/dL (0.2-1.0) Direct Bilirubin 0.1 mg/dL (0.0-0.2) Aspartate Amino Transferase (AST) 10 U/L (15-37) L Alanine Aminotransferase (ALT) 14 U/L (16-63) L Alkaline Phosphatase 78 U/L (46-116) Creatine Kinase 51 U/L (39-308) Troponin I Quantitative < 0.017 ng/mL (0-0.055) WH-Gxq-T-Type Natriuretic Peptide 254 pg/mL (0-449) Total Protein 7.1 g/dL (6.4-8.2) Albumin 3.6 g/dL (3.4-5.0) Lipase 96 U/L (73-393) Thyroid Stimulating Hormone (TSH) 6.059 uIU/mL (0.358-3.740) Digoxin Level < 0.2 ng/dL (0.9-2.0) L Digoxin Last Dose Date Unknown Digoxin Last Dose Time Unknown Phenytoin (Dilantin) Level < 0.5 mcg/mL (10.0-20.0) L Phenytoin Last Dose Date Unknown Phenytoin Last Dose Time Unknown Valproic Acid Level < 3 mcg/mL (50-100) L Valproic Acid Last Dose Date Unknown Valproic Acid Last Dose Time Unknown EKG EKG My interpretation of EKG shows a sinus rhythm at 85. Does have frequent PVCs and left axis. At time. He does have bigeminy on monitor.[] Radiology/Procedures Radiology/Procedures [[address] [address] IMAGING REPORT Signed PATIENT: MAISHA PURCELL ACCOUNT: [id number] : 1945 LOCATION: [facility] AGE: 73 SEX: M EXAM STATUS: ADM IN ORD. PHYSICIAN: LEONOR WILL MD REASON: Seizure activity, weakness PROCEDURE: PORTABLE CHEST 1V Examination: PORTABLE CHEST 1V History: Seizure activity, weakness Comparison/Correlation: 01/26/2019 portable chest x-ray exam Findings: Portable frontal view chest was obtained. Heart size and pulmonary vasculature are normal. No infiltrate or pleural effusion. Old left rib fractures are present. Impression: No acute process. Electronically signed by: Abbey Sweeney MD (05/10/2019 8:03 AM) [facility] DICTATED AND SIGNED BY: ABBEY SWEENEY MD DATE: 05/10/19 0803 CC: LEESA MATA MD; LEONOR WILL MD; SAKSHI RAJPUT MD ~ IMAGING REPORT Signed PATIENT: MAISHA PURCELL ACCOUNT: [id number] : 1945 LOCATION: [address] [place] [address] AGE: 73 SEX: M EXAM STATUS: ADM IN ORD. PHYSICIAN: LEONOR WILL MD REASON: eval dvt Elevated d-dimer PROCEDURE: VENOUS LOWER EXT BILATERAL Bilateral lower extremity venous duplex study 05/10/2019 12:07 PM Clinical History: Elevated d-dimer. Weakness. Shortness of breath. Fall. Comparison: None Technique: Using a combination of real time ultrasound imaging and color-flow and pulse Doppler imaging techniques along with graded compression and augmentation, duplex evaluation of the deep venous system of the both lower extremities was performed. Multiple images were obtained. Findings: There is no sonographic evidence of deep venous thrombosis involving the visualized deep venous structures of either lower extremity. Impression: No evidence of deep venous thrombosis involving either lower extremity Electronically signed by: Kenney Crespo MD (05/10/2019 12:59 PM) [facility] DICTATED AND SIGNED BY: KENNEY CRESPO MD DATE: 05/10/19 1259 CC: LEESA MATA MD; LEONOR WILL MD; SAKSHI RAJPUT MD ~ ][address] [address] IMAGING REPORT Signed PATIENT: MAISHA PURCELL ACCOUNT: [id number] : 1945 LOCATION: ER AGE: 73 SEX: M EXAM STATUS: REG ER ORD. PHYSICIAN: LEONOR WILL MD REASON: Seizure, fall, weakness, headache and neck pain PROCEDURE: CT HEAD AND CERVICAL SPINE WO INDICATION: Status post fall COMPARISON: CT head January 26, 2019 TECHNIQUE: Axial CT images obtained through the head and cervical spine. One or more of the following individualized dose reduction techniques were utilized for this examination: 1. Automated exposure control; 2. Adjustment of the mA and/or kV according to patient size; 3. Use of iterative reconstruction technique. FINDINGS: Head: No midline shift. Suspected small frontal scalp cephalohematoma. Diffuse prominence of ventricles and sulci again seen. Regions of low density throughout the white matter. Dural thickening and calcifications along the dura again seen at the falx. The posterior fossa there is some volume loss within the cerebellum with prominent CSF in the region. Similar prior. Small fluid in left maxillary sinus. A definite new hemorrhage is not seen. Inward bowing of the right zygomatic arch is again seen. Could be from old injury. Cervical spine: Degenerative changes throughout the cervical spine with osteophyte formation at the vertebral body endplates as well as uncovertebral and facet hypertrophy contributing to central canal and neural foraminal stenosis. Mild retrolisthesis of C3 on 4, C4 on 5. No definite acute fracture line is seen. Calcific atherosclerosis. There are some cystic changes at the lung apices which can be seen with chronic lung disease. IMPRESSION: 1. No definite acute intracranial hemorrhage. 2. Regions of low density of white matter. Nonspecific but can be seen with chronic small vessel ischemic disease. 3. Diffuse prominence of ventricles and sulci. Can be seen with age-related volume loss however other causes such as normal pressure hydrocephalus also within the differential. 4. Severe degenerative changes of the cervical spine with central canal neural foraminal stenosis. A definite acute fracture line is not seen. Electronically signed by: Katja Arteaga MD (05/10/2019 5:37 AM) [facility] DICTATED AND SIGNED BY: KATJA ARTEAGA MD DATE: 05/10/19 0537 CC: LEONOR WILL MD; SAKSHI RAJPUT MD ~ Course & Med Decision Making Course & Med Decision Making Pertinent Labs and Imaging studies reviewed. (See chart for details) Discussed presentation, testing and tx. plan with Dr. Mata.. Admit to Dr. Mata. US and VQ pending at time of admit. [] Final Impression Final Impression 1. Hx. Seizure- Hx. of Seizure Disorder.[] 2. Subtherapeutic Dilantin level 3. Dysrhythmia bigeminy 4. Elevated d-dimer 5. Elevated creatinine 6. History TIA and CVA Dragon Disclaimer Dragon Disclaimer This electronic medical record was generated, in whole or in part, using a voice recognition dictation system. Discharge Summary Visit Information Final Diagnosis Problems Medical Problems: (1) Seizure Status: Acute Brief Hospital Course Allergies Allergies Coded Allergies Type Severity Reaction Last Updated Verified aspirin Allergy Intermediate 02/18/19 Yes lisinopril Allergy Intermediate 02/18/19 Yes Vital Signs Vital Signs Date Time Temp Pulse Resp B/P (MAP) Pulse Ox O2 Delivery O2 Flow Rate FiO2 05/10/19 04:38 90 26 152/78 (102) 94 Room Air 05/10/19 04:00 97.9 Lab Results Laboratory Tests Test 05/10/19 04:15 White Blood Count 8.8 x10^3/uL (4.0-11.0) Red Blood Count 4.34 x10^6/uL (4.30-5.70) Hemoglobin 13.8 g/dL (13.0-17.5) Hematocrit 42.7 % (39.0-53.0) Mean Corpuscular Volume 98 fL (79-100) Mean Corpuscular Hemoglobin 32 pg (25-35) Mean Corpuscular Hemoglobin Concent 32 g/dL (31-37) Red Cell Distribution Width 12.5 % (11.5-14.5) Platelet Count 245 x10^3/uL (140-400) Neutrophils (%) (Auto) 62 % (31-73) Lymphocytes (%) (Auto) 27 % (24-48) Monocytes (%) (Auto) 9 % (0-9) Eosinophils (%) (Auto) 2 % (0-3) Basophils (%) (Auto) 1 % (0-3) Neutrophils # (Auto) 5.4 x10^3uL (1.8-7.7) Lymphocytes # (Auto) 2.4 x10^3/uL (1.0-4.8) Monocytes # (Auto) 0.8 x10^3/uL (0.0-1.1) Eosinophils # (Auto) 0.1 x10^3/uL (0.0-0.7) Basophils # (Auto) 0.1 x10^3/uL (0.0-0.2) Prothrombin Time 10.1 SEC (9.4-11.4) Prothromb Time International Ratio 1.0 (0.9-1.1) Activated Partial Thromboplast Time 24 SEC (23-33) D-Dimer (Yadira) 1.07 mg/L (0.00-0.50) Sodium Level 142 mmol/L (136-145) Potassium Level 4.2 mmol/L (3.5-5.1) Chloride Level 104 mmol/L (98-107) Carbon Dioxide Level 21 mmol/L (21-32) Anion Gap 17 (6-14) Blood Urea Nitrogen 10 mg/dL (8-26) Creatinine 1.4 mg/dL (0.7-1.3) Estimated GFR (Cockcroft-Gault) 59.8 Glucose Level 115 mg/dL (70-99) Calcium Level 9.4 mg/dL (8.5-10.1) Magnesium Level 2.0 mg/dL (1.8-2.4) Total Bilirubin 0.6 mg/dL (0.2-1.0) Direct Bilirubin 0.1 mg/dL (0.0-0.2) Aspartate Amino Transf (AST/SGOT) 10 U/L (15-37) Alanine Aminotransferase (ALT/SGPT) 14 U/L (16-63) Alkaline Phosphatase 78 U/L (46-116) Creatine Kinase 51 U/L (39-308) Troponin I Quantitative < 0.017 ng/mL (0-0.055) AK-Key-E-Type Natriuretic Peptide 254 pg/mL (0-449) Total Protein 7.1 g/dL (6.4-8.2) Albumin 3.6 g/dL (3.4-5.0) Lipase 96 U/L (73-393) Thyroid Stimulating Hormone (TSH) 6.059 uIU/mL (0.358-3.740) Digoxin Level < 0.2 ng/dL (0.9-2.0) Digoxin Last Dose Date Unknown Digoxin Last Dose Time Unknown Phenytoin (Dilantin) Level < 0.5 mcg/mL (10.0-20.0) Phenytoin Last Dose Date Unknown Phenytoin Last Dose Time Unknown Valproic Acid (Depakene) Level < 3 mcg/mL (50-100) Valproic Acid Last Dose Date Unknown Valproic Acid Last Dose Time Unknown Brief Hospital Course Mr. Purcell is a 73 old male who presented with hx Seizure- Sub Therapeutic Dilantin level. Admit to Dr. Sean. Discharge Information Condition at Discharge: Stable Dischare Medications Current Medications Lactated Ringer's 1,000 ml @ 100 mls/hr Q10H IV Last administered on 05/10/19at 04:22; Admin Dose 100 MLS/HR; Start 05/10/19 at 04:30; Stop 05/10/19 at 14:29; Status DC Lorazepam (Ativan Inj) 2 mg 1X ONCE IV Last administered on 05/10/19at 04:21; Admin Dose 2 MG; Start 05/10/19 at 04:30; Stop 05/10/19 at 04:31; Status DC Active Scripts Active No Active Prescriptions or Reported Medications Dragon Disclaimer This chart was dictated in whole or in part using Voice Recognition software in a busy, high-work load, and often noisy Emergency Department environment. It may contain unintended and wholly unrecognized errors or omissions. LEONOR WILL MD May 10, 2019 04:10
[2019-05-10 04:30] LABS: BASO # 0.1 x10^3/uL (0.0-0.2); BASO % 1 % (0-3); EOS # 0.1 x10^3/uL (0.0-0.7); EOS % 2 % (0-3); HEMATOCRIT 42.7 % (39.0-53.0); HEMOGLOBIN 13.8 g/dL (13.0-17.5); LYMPH # 2.4 x10^3/uL (1.0-4.8); LYMPH % 27 % (24-48); MEAN CORPUSCULAR HEMOGLOBIN 32 pg (25-35); MEAN CORPUSCULAR HGB CONC 32 g/dL (31-37); MEAN CORPUSCULAR VOLUME 98 fL (79-100); MONO # 0.8 x10^3/uL (0.0-1.1); MONO % 9 % (0-9); NEUT # 5.4 x10^3uL (1.8-7.7); NEUT % 62 % (31-73); PLATELET COUNT 245 x10^3/uL (140-400); RED BLOOD COUNT 4.34 x10^6/uL (4.30-5.70); RED CELL DISTRIBUTION WIDTH 12.5 % (11.5-14.5); WHITE BLOOD COUNT 8.8 x10^3/uL (4.0-11.0)
[2019-05-10] MEDS ORDERED: IV RINGERS SOLUTION,LACTATED 1,000 ML IV SCH (04:30)
[2019-05-10 04:50] LABS: ALBUMIN 3.6 g/dL (3.4-5.0); ALK PHOS 78 U/L (46-116); ALT (SGPT) 14 U/L (16-63); ANION GAP 17 (6-14); AST (SGOT) 10 U/L (15-37); BLOOD UREA NITROGEN 10 mg/dL (8-26); CALCIUM 9.4 mg/dL (8.5-10.1); CARBON DIOXIDE 21 mmol/L (21-32); CHLORIDE 104 mmol/L (98-107); CREATININE 1.4 mg/dL (0.7-1.3); DIRECT BILIRUBIN 0.1 mg/dL (0.0-0.2); GFR 59.8; GLUCOSE 115 mg/dL (70-99); LIPASE 96 U/L (73-393); POTASSIUM 4.2 mmol/L (3.5-5.1); SODIUM 142 mmol/L (136-145); TOTAL BILIRUBIN 0.6 mg/dL (0.2-1.0); TOTAL PROTEIN 7.1 g/dL (6.4-8.2)
[2019-05-10 04:52] LABS: PHENY < 0.5 mcg/mL (10.0-20.0); VAL ACID < 3 mcg/mL (50-100)
[2019-05-10 05:14] LABS: DIG < 0.2 ng/dL (0.9-2.0)
[2019-05-10] MEDS ORDERED: ACETAMINOPHEN 325 MG TABLET PO PRN (05:15)
[2019-05-10] MEDS ORDERED: ONDANSETRON PF 4 MG/2 ML VIAL. IV PRN (05:15)
[2019-05-10] MEDS ORDERED: FOSPHENYTOIN 500 MG/10 ML VIAL IV ONE (05:30)
[2019-05-10] MEDS ORDERED: IV NORMAL SALINE 50ML 50 ML ONE (05:30)
[2019-05-10] MEDS ORDERED: FOSPHENYTOIN IV ONE (05:30)
[2019-05-10] MEDS ORDERED: NORMAL SALINE IV ONE (05:30)
--- NOTE | 2019-05-10 05:40 | RAD ---
INDICATION: Status post fall COMPARISON: CT head January 26, 2019 TECHNIQUE: Axial CT images obtained through the head and cervical spine. One or more of the following individualized dose reduction techniques were utilized for this examination: 1. Automated exposure control; 2. Adjustment of the mA and/or kV according to patient size; 3. Use of iterative reconstruction technique. FINDINGS: Head: No midline shift. Suspected small frontal scalp cephalohematoma. Diffuse prominence of ventricles and sulci again seen. Regions of low density throughout the white matter. Dural thickening and calcifications along the dura again seen at the falx. The posterior fossa there is some volume loss within the cerebellum with prominent CSF in the region. Similar prior. Small fluid in left maxillary sinus. A definite new hemorrhage is not seen. Inward bowing of the right zygomatic arch is again seen. Could be from old injury. Cervical spine: Degenerative changes throughout the cervical spine with osteophyte formation at the vertebral body endplates as well as uncovertebral and facet hypertrophy contributing to central canal and neural foraminal stenosis. Mild retrolisthesis of C3 on 4, C4 on 5. No definite acute fracture line is seen. Calcific atherosclerosis. There are some cystic changes at the lung apices which can be seen with chronic lung disease. IMPRESSION: 1. No definite acute intracranial hemorrhage. 2. Regions of low density of white matter. Nonspecific but can be seen with chronic small vessel ischemic disease. 3. Diffuse prominence of ventricles and sulci. Can be seen with age-related volume loss however other causes such as normal pressure hydrocephalus also within the differential. 4. Severe degenerative changes of the cervical spine with central canal neural foraminal stenosis. A definite acute fracture line is not seen. Electronically signed by: Adolfo Arteaga MD (05/10/2019 5:37 AM) [facility]
[2019-05-10 06:15] VITALS: BP 147/86
[2019-05-10] MEDS ORDERED: ANTI-COAG MONITOR BY PHARMACY. MC PRN (06:30)
--- NOTE | 2019-05-10 08:06 | RAD ---
Examination: PORTABLE CHEST 1V History: Seizure activity, weakness Comparison/Correlation: 01/26/2019 portable chest x-ray exam Findings: Portable frontal view chest was obtained. Heart size and pulmonary vasculature are normal. No infiltrate or pleural effusion. Old left rib fractures are present. Impression: No acute process. Electronically signed by: Jaswant Rodriguez MD (05/10/2019 8:03 AM) [facility]
[2019-05-10] MEDS: ENOXAPARIN ** NOTE DOSE ** SYRINGE SQ SCH ×2 (08:43→20:25)
[2019-05-10] MEDS ORDERED: ASPIRIN 81 MG TAB.CHEW PO SCH (09:00)
[2019-05-10 11:21] VITALS: BP 144/83
--- NOTE | 2019-05-10 13:02 | RAD ---
Bilateral lower extremity venous duplex study 05/10/2019 12:07 PM Clinical History: Elevated d-dimer. Weakness. Shortness of breath. Fall. Comparison: None Technique: Using a combination of real time ultrasound imaging and color-flow and pulse Doppler imaging techniques along with graded compression and augmentation, duplex evaluation of the deep venous system of the both lower extremities was performed. Multiple images were obtained. Findings: There is no sonographic evidence of deep venous thrombosis involving the visualized deep venous structures of either lower extremity. Impression: No evidence of deep venous thrombosis involving either lower extremity Electronically signed by: Kenney Anglin MD (05/10/2019 12:59 PM) [facility]
--- NOTE | 2019-05-10 14:56 | HP ---
ADMIT DATE: 05/10/2019 HISTORY OF PRESENT ILLNESS: The patient is a 73-year-old gentleman with a history of multiple medical problems. The patient apparently had a tonic-clonic seizure and was postictal when he came in through the Emergency Room. The patient has a history of CVA, some aphasia, seizure disorder, hemiplegic paralysis and so forth. In any case, the patient was brought in and found his Dilantin level was low. Normally, [facility] the [facility] and had been a while back his Dilantin level was too high and now it is too low. He was having some type of cardiac arrhythmias and was brought in for further evaluation with Dr. Key. PAST MEDICAL HISTORY: As noted, the patient is mentally challenged. He had left-sided residual problems from a stroke, seizure activity, GERD, incontinence, urinary urgency, urinary retention, musculoskeletal disorders and marked kyphosis, scoliosis to the spine, generalized weakness, bilateral hearing loss, severe dysphagia, possible aspiration, hypertension. ALLERGIES: To LISINOPRIL and ASPIRIN. MEDICATIONS: Apparently, he is not on any active medications as noted. FAMILY HISTORY: Noncontributory. SOCIAL HISTORY: The patient lives at a [facility]. No smoking, alcohol or drug use. REVIEW OF SYSTEMS: The patient is really not able to give much of a history. He was postictal. PHYSICAL EXAMINATION: GENERAL: This is an appearing Afro-[place] gentleman, in no apparent distress. VITAL SIGNS: Blood pressure 150/78, respiratory rate 26, pulse 90, afebrile. The patient's oxygen saturation is 94%. The patient shows some signs of ____ he is a frail appearing and he is not fairly well-developed, considering his age. The patient's vital signs are as noted. HEENT: The patient has some slight asymmetry to his face, difficulty in swallowing. Poor dentition. NECK: Supple. LUNGS: Diminished throughout, poor movement of air, but clear. CARDIOVASCULAR: Occasional dropped beat. ABDOMEN: Protuberant, soft, nontender. Positive bowel sounds, no hepatosplenomegaly noted. EXTREMITIES: No clubbing, cyanosis. Marked atrophy to the musculoskeletal system. NEUROLOGIC: Pupils reactive to light and accommodation. The patient is not able to follow along. He does have some hearing impairment. Reflexes symmetrical. LABORATORY DATA: The patient's digoxin level was less than 0.2, Dilantin level less than 0.5, basically subtherapeutic. IMPRESSION: Onset of grand mal seizures reoccurrence, subtherapeutic levels of medication, history of stroke with hemiparesis, generalized weakness, poor musculoskeletal developments, severe incontinence, dysphagia. PLAN: As above. LEESA MATA MD DR: MALA/caro JOB#: [id number] / [id number]
[2019-05-10 15:19] VITALS: BP 157/80
--- NOTE | 2019-05-10 16:45 | CONS ---
DATE OF CONSULTATION: 05/10/2019 REASON FOR CONSULTATION: PVCs. HISTORY OF PRESENT ILLNESS: The patient is a pleasant 73-year-old man who was admitted to the hospital due to symptoms of having a tonic-clonic seizure and also being postictal in the Emergency Room. In this setting, he was noted to have PVCs on EKG and therefore, Cardiology was consulted. This afternoon, the patient denies any specific cardiac symptoms such as chest pain, dyspnea, orthopnea or PND. He is mostly limited in his speech due to a prior stroke. No prior cardiac interventions of note. Review of his EKGs over the last 6 months reveals that he has frequently been admitted with sinus rhythm and PVCs. PAST MEDICAL HISTORY: 1. GERD. 2. Seizure activity, on phenytoin. 3. Prior history of cerebrovascular accident. 4. Multiple other issues including urinary incontinence and kyphosis and generalized weakness and dysphagia. ALLERGIES: To LISINOPRIL and ASPIRIN. CURRENT CARDIAC MEDICATIONS: None. FAMILY HISTORY: Noncontributory. SOCIAL HISTORY: The patient lives in a prison. No alcohol, tobacco or illicit drug use. REVIEW OF SYSTEMS: Negative for 10 out of 14 systems reviewed, unless otherwise mentioned above in HPI. PHYSICAL EXAMINATION: VITAL SIGNS: Afebrile, 58, 20, 157/80, 97% on room air. GENERAL: He is alert and oriented to self and place, but not time. HEAD AND NECK: Unremarkable. CARDIAC: Regular rate and rhythm without any obvious murmurs, rubs or gallops. LUNGS: Clear to auscultation bilaterally anteriorly. ABDOMEN: Soft, nontender. EXTREMITIES: Without any significant clubbing, cyanosis or edema. NEUROLOGIC: The patient has difficulty with speech due to his prior CVA. DIAGNOSTIC STUDIES: Hemoglobin 13.8, platelets 245. Creatinine elevated at 1.4. LFTs are within normal limits. TSH is mildly elevated at 6.1. Cardiac enzymes are negative x 1. BNP is mildly elevated at 254, but grossly unremarkable. EKG demonstrates sinus rhythm with PVCs. IMPRESSION: Frequent premature ventricular contractions in the setting of history of postictal state. No obvious electrolyte abnormalities to note. The patient has a history of frequent PVCs, on various EKGs. RECOMMENDATIONS: Given his age and medical history, we will rule out any occult structural heart disease. We will obtain an echocardiogram prior to discharge tomorrow and also plan on starting the patient on 12.5 mg of p.o. metoprolol b.i.d. and monitor him closely. Thank you for this consultation. CHARLA JANG MD DR: JANICE/caro JOB#: [id number] / [id number]
[2019-05-10 19:45] VITALS: BP 143/85
[2019-05-10] MEDS: METOPROLOL TART IMMED RELEASE 25 MG TABLET PO SCH (20:27)
[2019-05-10] MEDS ORDERED: PHENYTOIN SODIUM EXTENDED 100 MG CAPSULE PO SCH (21:00)
[2019-05-10] MEDS ORDERED: PHENYTOIN 100 MG/4 ML ORAL.SUSP. PO SCH (21:00)
[2019-05-10 23:23] VITALS: BP 153/88
--- NOTE | 2019-05-11 03:26 | CONS ---
DATE OF CONSULTATION: 05/10/2019 NEUROLOGIC CONSULTATION REASON FOR CONSULTATION: Breakthrough seizure. HISTORY OF PRESENT ILLNESS: This is a 73-year-old -Guyanese male who was admitted through Emergency Room after he presented with a breakthrough seizure described as a generalized tonic-clonic seizure. The patient is known to us from previous admission because of seizure disorder. The patient was evaluated in the Emergency Room and was found to be alert and responsive and answered all questions. The patient had history of stroke affected his left side and subsequently he had a seizure. He was placed on Dilantin; however, his Dilantin level was less than 0.5 on the day of admission. The patient was loaded with fosphenytoin and started on maintenance dose of Dilantin at 300 mg daily. Currently, he denies any new medical or neurological complaints. Initial nonenhanced head CT scan revealed no evidence of acute intracranial process, but showed chronic small vessel ischemic changes and ventricular atrophy. 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 SOCIAL HISTORY: The patient is a shelter resident. He denies smoking, alcohol drinking, or illicit drug use. FAMILY HISTORY: Not obtainable. CURRENT HOME MEDICATIONS: None. REVIEW OF SYSTEMS: A 10-point review of system was performed as mentioned above in history of present illness. PHYSICAL EXAMINATION: GENERAL: Well-developed, well-nourished -Guyanese man, not in acute distress. He weighs 59.6 kilos. VITAL SIGNS: Blood pressure 157/80, respiratory rate 20, pulse is 58, temperature 99.7, oxygen saturation 97%. HEENT: Normocephalic, atraumatic, otherwise unremarkable. NECK: Supple. Negative for carotid bruit, lymphadenopathy, JVD or thyromegaly. LUNGS: Clear to A and P. CARDIOVASCULAR: Regular rhythm, normal S1, S2. There is no S3, S4 or murmur. ABDOMEN: Soft. Bowel sounds positive. EXTREMITIES: Negative for cyanosis, clubbing or pitting edema. NEUROLOGIC: Mental status: The patient is alert and oriented x 2. The speech is fluent. There is no language dysfunction. Memory, judgment, and abstract thinking are fair. The patient denies hallucination or delusion. CRANIAL NERVES: Visual perez are full. The pupils are reactive to light and accommodation. The extraocular movements are intact. There is no nystagmus. There is no facial motor or sensory deficit. Hearing is diminished bilaterally. The palate is elevated symmetrically. Sternocleidomastoid muscles are powerful bilaterally. The patient shrugs his shoulders symmetrically, protrudes his tongue in the midline without fasciculation or atrophy. MOTOR: No focal muscle bulk was seen. The tone is normal. The strength is 4/5 in the left upper and lower extremities, otherwise is 5/5 throughout. Sensory examination revealed normal pinprick, light touch, vibratory and position senses. Deep tendon reflexes were symmetric and hypoactive with absent Achilles responses. Gait not tested. LABORATORY DATA: CBC revealed white blood cells of 8.8 thousand, hemoglobin 13.8, hematocrit 42.7, platelet count 245,000. Chemistry revealed sodium of 142, potassium 4.2, chloride 104, CO2 21, BUN 10, creatinine 1.4, glucose 115. Lower liver enzymes with normal troponin and high TSH. Urine drug screen is negative. D-dimer is elevated at 1.07. Because of elevated D-dimer, venous Doppler study of the lower extremities were performed and revealed no evidence of DVT or other abnormalities. IMAGING: Chest x-ray revealed no acute process and cervical spine MRI revealed no acute abnormalities, severe degenerative changes of the cervical spine. CT of the head consistent with small vessel ischemic changes of chronic time along with possible hydrocephalus. IMPRESSION: 1. Breakthrough seizure. The patient is not on anticonvulsant -- Dilantin. 2. History of seizure with mild left hemiparesis, urinary incontinence and dysphagia. RECOMMENDATIONS: Continue current management with phenytoin at 300 mg at bedtime and continue with current management initiated by Dr. Estrada. M Ben DIAZ MD DR: KARINA/caro JOB#: [id number] / [id number]
[2019-05-11 05:35] VITALS: BP 128/76
[2019-05-11 06:17] LABS: BASO # 0.1 x10^3/uL (0.0-0.2); BASO % 1 % (0-3); EOS % 0 % (0-3); HEMATOCRIT 41.5 % (39.0-53.0); HEMOGLOBIN 13.7 g/dL (13.0-17.5); LYMPH # 1.4 x10^3/uL (1.0-4.8); LYMPH % 17 % (24-48); MEAN CORPUSCULAR HEMOGLOBIN 32 pg (25-35); MEAN CORPUSCULAR HGB CONC 33 g/dL (31-37); MEAN CORPUSCULAR VOLUME 97 fL (79-100); MONO # 0.8 x10^3/uL (0.0-1.1); MONO % 9 % (0-9); NEUT # 6.2 x10^3uL (1.8-7.7); NEUT % 73 % (31-73); PLATELET COUNT 247 x10^3/uL (140-400); RED BLOOD COUNT 4.27 x10^6/uL (4.30-5.70); RED CELL DISTRIBUTION WIDTH 12.6 % (11.5-14.5); WHITE BLOOD COUNT 8.5 x10^3/uL (4.0-11.0)
[2019-05-11 06:21] LABS: CALCIUM 9.8 mg/dL (8.5-10.1); CREATININE 1.1 mg/dL (0.7-1.3); POTASSIUM 4.3 mmol/L (3.5-5.1)
[2019-05-11 06:25] LABS: PHENY 28.5 mcg/mL (10.0-20.0)
[2019-05-11] MEDS: ENOXAPARIN ** NOTE DOSE ** SYRINGE SQ SCH (07:54)
[2019-05-11] MEDS: METOPROLOL TART IMMED RELEASE 25 MG TABLET PO SCH (07:57)
[2019-05-11 10:31] VITALS: BP 111/67
[2019-05-11] MEDS ORDERED: PHEN100C PO (11:04)
[2019-05-11] MEDS ORDERED: METO25TA4 PO (11:04)
--- NOTE | 2019-05-11 23:08 | PN ---
DATE: 05/11/2019 SUBJECTIVE: A 73-year-old gentleman came in with grand mal seizures. He has been off his medications. The patient has been receiving IV as well as oral Dilantin and prior to this had breakthrough seizures. The patient's level has been elevated and presently is at 28.[address] Mejias made further adjustment. TSH is slightly elevated, but he is asymptomatic. Creatinine has come down; shows that he was somewhat dehydrated as well and went from 1.4 to 1.1. The patient is eating, drinking well, otherwise baseline. OBJECTIVE: VITAL SIGNS: Blood pressure 130/70, respirations 16, pulse 50, afebrile. GENERAL: The patient is alert and oriented. LUNGS: Diminished, but clear. CARDIOVASCULAR: Stable. NEUROLOGIC: Stable. No further seizure activity. No nystagmus noted. We will wait for Dr. Mejias to adjust his Dilantin and make further evaluation. IMPRESSION: Grand mal seizure and side effects of abnormal Dilantin levels. LEESA MATA MD DR: MALA/caro JOB#: [id number] / [id number]
--- NOTE | 2019-05-12 04:39 | PN ---
DATE: SUBJECTIVE: The patient denies any recurrent seizure, but he complains of dizziness. OBJECTIVE: GENERAL: Well-developed, well-nourished male, not in acute distress. VITAL SIGNS: Blood pressure 128/76, respiratory rate is 16, pulse is 55, oxygen saturation 97% on room air, temperature 97.6. HEENT: Normocephalic, atraumatic, otherwise unremarkable. NECK: Supple. Negative for carotid bruit, lymphadenopathy or thyromegaly. LUNGS: Clear to A and P. CARDIOVASCULAR: Regular rhythm. Normal S1, S2. ABDOMEN: Soft. Bowel sounds positive. EXTREMITIES: Negative for cyanosis, clubbing or pitting edema. NEUROLOGICAL EXAM: Mental Status: The patient is alert to himself. Speech is slow, but coherent. There is no language dysfunction. Memory, judgment, and abstract thinking are fair. The patient denies hallucination or delusion. Cranial nerves are intact, except for bilateral hearing loss. Motor Examination: No focal muscle bulk was seen. The tone is normal. The strength was 4/5 throughout. Sensory examination revealed normal pinprick and light touch senses. Deep tendon reflexes were symmetric and hypoactive with absent Achilles responses. Gait not tested. LABORATORY DATA: CBC revealed white blood cells of 8.5 thousand, hemoglobin 13.7, hematocrit 41.5, platelet count 247,000. Chemistry revealed sodium of 140, potassium 4.3, chloride 105, CO2 of 28, BUN 9, creatinine 1.1, glucose 96 and calcium 9.8. TSH is elevated at 6.1. Dilantin level today is 28.5. IMPRESSION: 1. Breakthrough seizure due to noncompliance with medication, but today, Dilantin level is elevated at 28.5 and the patient complains of dizziness, probably related to Dilantin toxicity. 2. History of seizure with mild left hemiparesis due to a previous stroke, urinary tract infections and dysphagia. RECOMMENDATIONS: We will hold on Dilantin for today and restart it tomorrow, then recheck Dilantin level after 2 days from discharge. M Ben DIAZ MD DR: KARINA/caro JOB#: [id number] / [id number]
== END 2019-05-11 12:52 | disposition home or self-care (01) | DRG 100 ==
LOC: ER 04:00 → 1 SOUTH 05:00
PROVIDERS: ADMIT Family Medicine; ATTEND Family Medicine
DX: G40.409 Other generalized epilepsy and epileptic syndromes, not intractable, without status epilepticus (principal); N17.0 Acute kidney failure with tubular necrosis; I69.354 Hemiplegia and hemiparesis following cerebral infarction affecting left non-dominant side; I69.320 Aphasia following cerebral infarction; I10 Essential (primary) hypertension; K21.9 Gastro-esophageal reflux disease without esophagitis; H91.93 Unspecified hearing loss, bilateral; E86.0 Dehydration; M41.9 Scoliosis, unspecified; Z88.8 Allergy status to other drugs, medicaments and biological substances; Z91.14 Patient's other noncompliance with medication regimen
CPT/HCPCS: 36415; 70450; 71045; 72125; 80048; 80076; 80162; 80164; 80185; 82550; 83690; 83735; 83880; 84443; 84484; 85025; 85379; 85610; 85730; 87641; 93005; 93970; 96361; 96365; 96375; J1650; J2060; J7120; Q2009; 99285-25

== ENCOUNTER 2019-05-21 14:33 | Inpatient (IN) | payer MEDICARE ==
[~2019-05-21] VITALS: Ht 167.6 cm; Wt 56.9 kg
[~2019-05-21 14:33] MED LIST changes: +METO25TA4 PO
--- NOTE | 2019-05-21 14:55 | PHYS DOC ---
Past History Past Medical History: CVA, GERD, Hypertension, Seizure, Stroke, TIA, Other Past Surgical History: No Surgical History Smoking: Non-smoker Alcohol Use: Sober Drug Use: None Adult General Chief Complaint Chief Complaint: DIZZY/LIGHT HEADED HPI HPI Patient is a 73-year-old male presents complaining of dizziness for the past several days. Nothing specifically makes this better or worse. He is a resident at an assisted care facility due to previous history of stroke. He also has seizures and is on Dilantin. He had Dilantin level drawn on 05/16/2019 that was 24.7. It was drawn again today and was noted to be 33.8. He denies any chest pain or palpitations. Denies any medicines that are not prescribed.[] Review of Systems Review of Systems Constitutional: Denies fever or chills [] Eyes: Denies change in visual acuity, redness, or eye pain [] HENT: Denies nasal congestion or sore throat [] Respiratory: Denies cough or shortness of breath [] Cardiovascular: No chest pain or palpitations[] GI: Denies abdominal pain, nausea, vomiting, bloody stools or diarrhea [] : Denies dysuria or hematuria [] Musculoskeletal: Denies back pain or joint pain [] Integument: Denies rash or skin lesions [] Neurologic: Denies headache, focal weakness or sensory changes, see history of present illness [] Endocrine: Denies polyuria or polydipsia [] All other systems were reviewed and found to be within normal limits, except as documented in this note. Allergies Allergies Allergies Coded Allergies Type Severity Reaction Last Updated Verified aspirin Allergy Intermediate 02/18/19 Yes lisinopril Allergy Intermediate 02/18/19 Yes Physical Exam Physical Exam Constitutional: Well developed, well nourished, no acute distress, non-toxic appearance. [] HENT: Normocephalic, atraumatic, bilateral external ears normal, oropharynx moist, no oral exudates, nose normal. [] Eyes: PERRLA, EOMI, conjunctiva normal, no discharge. [] Neck: Normal range of motion, no tenderness, supple, no stridor. [] Cardiovascular:Heart rate regular rhythm, no murmur [] Lungs & Thorax: Bilateral breath sounds clear to auscultation [] Abdomen: Bowel sounds normal, soft, no tenderness, no masses, no pulsatile masses. [] Skin: Warm, dry, no erythema, no rash. [] Back: No tenderness, no CVA tenderness. [] Extremities: No tenderness, no cyanosis, no clubbing, ROM intact, no edema. [] Neurologic: Alert and oriented X 3, left-sided weakness and facial droop-patient reports these are old and unchanged. [] Psychologic: Affect normal, judgement normal, mood normal. [] Current Patient Data Vital Signs Vital Signs Date Time Temp Pulse Resp B/P (MAP) Pulse Ox O2 Delivery O2 Flow Rate FiO2 05/21/19 14:43 58 18 98 Room Air EKG EKG EKG shows a sinus rhythm with PVCs. Left axis. No ST elevations. QTC of 394 ms. No acute changes when compared with EKG of 03/01/2019. Interpreted by me at 1448.[] Radiology/Procedures Radiology/Procedures [] Course & Med Decision Making Course & Med Decision Making Pertinent Labs and Imaging studies reviewed. (See chart for details) ED course: Patient arrived, was placed in bed, and tolerated exam well. After return of laboratory studies, these were discussed with the patient voiced understanding. Consultation was made with hospitalist service for admission. He was admitted in improved condition with all questions answered. Medical decision making: Patient with symptoms of Dilantin toxicity that appears to be worsening over time. His level this afternoon is higher than it was this morning. There are no acute EKG changes. He is being admitted for hydration and to allow the Dilantin level to return to the therapeutic range.[] Dragon Disclaimer Dragon Disclaimer This electronic medical record was generated, in whole or in part, using a voice recognition dictation system. Departure Departure: Impression: Primary Impression: Dilantin toxicity Disposition: ADMITTED INPATIENT Admitting Physician: Ghanshyam Gandhi Condition: IMPROVED Referrals: ED RAJPUT MD (PCP) Problem Qualifiers Primary Impression: Dilantin toxicity Encounter type: initial encounter Injury intent: accidental or unintentional Qualified Codes: T42.0X1A - Poisoning by hydantoin derivatives, accidental (unintentional), initial encounter SOFIA JONAS DO May 21, 2019 14:55
[2019-05-21 15:41] LABS: BASO % 1 % (0-3); EOS # 0.1 x10^3/uL (0.0-0.7); EOS % 1 % (0-3); HEMATOCRIT 40.5 % (39.0-53.0); HEMOGLOBIN 13.3 g/dL (13.0-17.5); LYMPH # 1.9 x10^3/uL (1.0-4.8); LYMPH % 33 % (24-48); MEAN CORPUSCULAR HEMOGLOBIN 32 pg (25-35); MEAN CORPUSCULAR HGB CONC 33 g/dL (31-37); MEAN CORPUSCULAR VOLUME 97 fL (79-100); MONO # 0.6 x10^3/uL (0.0-1.1); MONO % 11 % (0-9); NEUT # 3.1 x10^3uL (1.8-7.7); NEUT % 54 % (31-73); PLATELET COUNT 307 x10^3/uL (140-400); RED BLOOD COUNT 4.16 x10^6/uL (4.30-5.70); RED CELL DISTRIBUTION WIDTH 12.3 % (11.5-14.5); WHITE BLOOD COUNT 5.7 x10^3/uL (4.0-11.0)
[2019-05-21 15:50] LABS: ALBUMIN/GLOBULIN RATIO 1.1 (1.0-1.7); TOTAL PROTEIN 7.8 g/dL (6.4-8.2)
[2019-05-21 15:51] LABS: BLOOD UREA NITROGEN 15 mg/dL (8-26); BUN/CREATININE RATIO 13 (6-20); CALCIUM 9.4 mg/dL (8.5-10.1); CREATININE 1.2 mg/dL (0.7-1.3); GFR 71.4; GLUCOSE 94 mg/dL (70-99)
[2019-05-21 15:52] LABS: ALK PHOS 85 U/L (46-116); ALT (SGPT) 16 U/L (16-63); ANION GAP 6 (6-14); AST (SGOT) 11 U/L (15-37); CARBON DIOXIDE 30 mmol/L (21-32); CHLORIDE 105 mmol/L (98-107); PHENY 39.9 mcg/mL (10.0-20.0); POTASSIUM 4.5 mmol/L (3.5-5.1); SODIUM 141 mmol/L (136-145); TOTAL BILIRUBIN 0.2 mg/dL (0.2-1.0)
[2019-05-21] MEDS: IV NORMAL SALINE 1,000ML 1,000 ML IV SCH (16:06)
[2019-05-21] MEDS ORDERED: ACETAMINOPHEN 325 MG TABLET PO PRN (16:15)
[2019-05-21] MEDS ORDERED: ONDANSETRON PF 4 MG/2 ML VIAL. IV PRN (16:20)
--- NOTE | 2019-05-21 17:35 | EKG ---
[address] [address] Test Date: 2019-05-21 Test Time: 14:44:41 Pat Name: MAISHA PURCELL Department: Room: Gender: M Shop Steward: SANIA : 1945 Requested By: SOFIA JONAS Order Number: [id number] Reading MD: Measurements Intervals Maryneal Rate: 58 P: 31 ND: 162 QRS: -22 QRSD: 78 T: 52 QT: 398 QTc: 394 Interpretive Statements SINUS RHYTHM VENTRICULAR PREMATURE COMPLEX(ES) LEFTWARD AXIS ABNORMAL ECG RI6.01 No previous ECG available for comparison
[2019-05-21 17:36] VITALS: BP 119/80
[2019-05-21 20:41] LABS: BACTERIA,URINE 0 /HPF (0-FEW); BILIRUBIN,URINE NEG (NEG); CLARITY,URINE CLEAR; COLOR,URINE STRAW; GLUCOSE,URINE NEG (NEG); NITRITE,URINE NEG (NEG); RBC,URINE 0 /HPF (0-2); SQUAMOUS EPITHELIAL CELL,UR OCC /LPF; UROBILINOGEN,URINE 0.2 mg/dL (0.2 mg/dL); WBC,URINE OCC /HPF (0-4)
[2019-05-21] MEDS: METOPROLOL TART IMMED RELEASE 25 MG TABLET PO SCH (21:35)
[2019-05-21 23:00] VITALS: BP 110/67
[2019-05-21] MEDS: HEPARIN for SUB-Q USE 5,000 UNIT/ML VIAL. SQ SCH (23:31)
[2019-05-22] MEDS: IV NORMAL SALINE 1,000ML 1,000 ML IV SCH (05:13)
--- NOTE | 2019-05-22 05:30 | RAD ---
CHEST AP ONLY Clinical Indication: Fever Comparison: AP chest, May 10, 2019. Findings: The cardiomediastinal silhouette is normal. Lungs are clear. There is no pneumothorax. No pleural effusion is appreciated. No acute bone abnormality. Old left rib fractures redemonstrated. Degenerative endplate spurring of the thoracic spine. IMPRESSION: No acute cardiopulmonary process. Electronically signed by: Saul Prater MD (05/22/2019 5:27 AM) [id number]
[2019-05-22] MEDS: HEPARIN for SUB-Q USE 5,000 UNIT/ML VIAL. SQ SCH ×3 (05:55→22:05)
[2019-05-22 06:30] VITALS: BP 140/77
[2019-05-22 06:38] LABS: PHENY 36.2 mcg/mL (10.0-20.0)
[2019-05-22 06:41] LABS: CALCIUM 9.1 mg/dL (8.5-10.1)
[2019-05-22 06:42] LABS: CREATININE 1.1 mg/dL (0.7-1.3); POTASSIUM 4.2 mmol/L (3.5-5.1)
[2019-05-22] MEDS: METOPROLOL TART IMMED RELEASE 25 MG TABLET PO SCH ×2 (08:41→21:00)
--- NOTE | 2019-05-22 09:04 | CONS ---
DATE OF CONSULTATION: 05/21/2019 NEUROLOGIC CONSULTATION REFERRING PHYSICIAN: Dr. Estrada. REASON FOR CONSULTATION: Dilantin toxicity and dizziness. HISTORY OF PRESENT ILLNESS: This is a 73-year-old right-handed -English man was admitted to Emergency Room today after he presented with dizziness of few days' duration. The patient denies headaches, visual disturbances, nausea, vomiting, chest pain, shortness of breath, or palpitations, dysarthria, dysphagia, weakness, or paresthesia. The patient has had a history of seizure secondary to stroke. Dilantin level was toxic at 33.8. The patient has had multiple admissions before of Dilantin toxicity. PAST MEDICAL HISTORY: Significant for stroke resulted in mild left hemiparesis, improved over time, history of seizure disorder, GERD, urinary incontinence and retention, kyphosis, scoliosis of the spine and bilateral hearing loss, history of dysphagia with aspiration, hypertension. SOCIAL HISTORY: The patient is an assisted living place resident. He denies smoking, alcohol drinking, or illicit drug use. FAMILY HISTORY: Noncontributory. CURRENT HOME MEDICATIONS: Dilantin 300 mg at bedtime, metoprolol 12.5 mg b.i.d. and Tylenol p.r.n. ALLERGIES: LISINOPRIL AND ASPIRIN. REVIEW OF SYSTEMS: A 10-point review of system was performed as mentioned above in history of present illness. PHYSICAL EXAMINATION: GENERAL: Well-developed, well-nourished -English male, not in acute distress. VITAL SIGNS: Blood pressure 119/80, respiratory rate 18, pulse is 74, temperature 99.1, oxygen saturation 97% on room air. HEENT: Normocephalic, atraumatic, otherwise unremarkable. NECK: Supple. Negative for carotid bruit, lymphadenopathy, or thyromegaly. LUNGS: Clear to A and P. CARDIOVASCULAR: Regular rate and rhythm, normal S1, S2. There is no S3, S4 or murmurs. ABDOMEN: Soft. Bowel sounds positive. EXTREMITIES: Negative for cyanosis, clubbing or edema. NEUROLOGIC: Mental status: The patient is alert and oriented x 3. Speech is fluent. There is no language dysfunction. Memory, judgment, and abstract thinking are normal. The patient denies hallucination or delusions. CRANIAL NERVES: Visual perez are full. The pupils are reactive to light and accommodation. The extraocular movements are intact. There is no nystagmus. There is no facial motor or sensory deficit. Hearing is diminished bilaterally. The palate is elevated symmetrically. Sternocleidomastoid muscles are powerful bilaterally. The patient shrugs his shoulders symmetrically, protrudes his tongue in the midline without fasciculation or atrophy. MOTOR EXAMINATION: No focal muscle bulk was seen. The tone is normal. The strength is 5/5 throughout. Sensory examination revealed normal pinprick, light touch, vibratory and position senses. Deep tendon reflexes were symmetric and hypoactive with absent Achilles responses. Gait not tested. The coordination is normal. LABORATORY DATA: CBC revealed white blood cells of 5.7 thousand, hemoglobin 15.3, hematocrit 40.5, platelet count 307,000. Chemistry revealed sodium of 141, potassium 4.5, chloride 105, CO2 of 30, BUN 15, creatinine 1.2, glucose 94, calcium 9.4. Liver enzymes are normal with low AST. Dilantin level is high at 39.9. Urinalysis is negative for urinary tract infections. IMPRESSION: 1. Dizziness for a few days prior to the admission, likely due to underlying Dilantin toxicity. 2. History of hypertension and stroke without significant residual. 3. Bilateral hearing loss. RECOMMENDATIONS: 1. Hold on Dilantin for now. 2. Continue with current management. 3. We will check Dilantin level in the morning and adjust Dilantin dose to 200 mg at bedtime. M Ben DIAZ MD DR: KARINA/caro JOB#: [id number] / [id number]
--- NOTE | 2019-05-22 09:33 | HP ---
ADMIT DATE: 05/22/2019 HISTORY OF PRESENT ILLNESS: A 73-year-old gentleman comes in from the nursing facility, apparently came in complaining of dizziness and was having symptoms. His Dilantin level was up to 33.834, make it in any case the patient has had trouble keeping this under control. He is going from 0-34 and consulted the eminent professor of Neurology, Dr. Mejias, who will evaluate what we can do to help count of even this out and then check for further evaluation on this to prevent seizures. He does have seizures when the Dilantin level goes too low. The patient is a pleasant -[place] gentleman, right-handed. PAST MEDICAL HISTORY: He has had a history of stroke with left-sided residual, history of epilepsy, GERD, incontinence, urinary urgency, retention and musculoskeletal disorders musculoskeletal atrophy. The patient is a full code. SOCIAL HISTORY: Denies smoking, alcohol or drug use. Lives out at the senior living. FAMILY HISTORY: Noncontributory. MEDICATIONS: The patient's medications were monitored in the usual timely fashion. REVIEW OF SYSTEMS: The patient basically outside of his dizziness, he has some mild nystagmus, but other than that denies any nausea, vomiting, chest pain, shortness of breath. Denies any abdominal pain. Denies any melena, hematochezia, or hematemesis. Neurologically intact. PHYSICAL EXAMINATION: GENERAL: This is a very pleasant gentleman in no apparent distress at the present time. VITAL SIGNS: Blood pressure 140/70, respiratory rate 16, pulse 60, afebrile. HEENT: The patient's head was atraumatic, normocephalic. Eyes: PERRLA without jaundice. The patient has somewhat difficulty with his speech from a stroke, but other than that the neck was supple, without JVD, carotid bruits or thyromegaly. Some left arm weakness. LUNGS: Clear. CARDIOVASCULAR: Regular sinus rhythm. ABDOMEN: Soft, nontender. EXTREMITIES: No clubbing, cyanosis or edema. NEUROLOGIC: The patient was alert and oriented, baseline for him, some weakness noted on the left side of his body. The patient has some muscle wasting, although he has normal muscle tone. LABORATORY DATA: Basically stable. White count 5.7, hemoglobin 15 and 40, platelets were normal. BUN and creatinine of 15 and 1.2, glucose 94, the patient's liver function tests were normal and Dilantin as noted was 34. IMPRESSION: Dizziness secondary to Dilantin toxicity, history of hypertension, bilateral hearing loss, residual from previous stroke. PLAN: We will go ahead and continue to monitor the patient accordingly, make further evaluation on him as indicated. LEESA MATA MD DR: MALA/caro JOB#: [id number] / [id number]
[2019-05-22 11:10] VITALS: BP 118/64
[2019-05-22 16:36] VITALS: BP 133/73
[2019-05-22 19:07] VITALS: BP 117/69
[2019-05-22 23:01] VITALS: BP 131/80
[2019-05-23 05:31] VITALS: BP 133/73
[2019-05-23] MEDS: HEPARIN for SUB-Q USE 5,000 UNIT/ML VIAL. SQ SCH ×2 (06:00→14:00)
[2019-05-23 06:40] LABS: BASO # 0.1 x10^3/uL (0.0-0.2); BASO % 1 % (0-3); EOS # 0.1 x10^3/uL (0.0-0.7); EOS % 2 % (0-3); HEMATOCRIT 39.8 % (39.0-53.0); HEMOGLOBIN 13.1 g/dL (13.0-17.5); LYMPH % 35 % (24-48); MEAN CORPUSCULAR HEMOGLOBIN 32 pg (25-35); MEAN CORPUSCULAR HGB CONC 33 g/dL (31-37); MEAN CORPUSCULAR VOLUME 98 fL (79-100); MONO # 0.6 x10^3/uL (0.0-1.1); MONO % 10 % (0-9); NEUT # 2.9 x10^3uL (1.8-7.7); NEUT % 52 % (31-73); PLATELET COUNT 260 x10^3/uL (140-400); RED BLOOD COUNT 4.06 x10^6/uL (4.30-5.70); RED CELL DISTRIBUTION WIDTH 12.5 % (11.5-14.5); WHITE BLOOD COUNT 5.6 x10^3/uL (4.0-11.0)
[2019-05-23 06:45] LABS: PHENY 32.6 mcg/mL (10.0-20.0)
[2019-05-23] MEDS: METOPROLOL TART IMMED RELEASE 25 MG TABLET PO SCH (08:53)
[2019-05-23] MEDS ORDERED: IOHEXOL 350 MG/ML 100 ML VIAL. IV ONE (09:45)
[2019-05-23 10:05] VITALS: BP 98/64
--- NOTE | 2019-05-23 10:33 | RAD ---
Examination: CT ANGIOGRAPHY CHEST History: Elevated d-dimer Comparison/Correlation: 05/21/2019 AP view of the chest Findings: Axial images of chest were obtained following IV contrast according to pulmonary arteriography protocol. Minimal right middle lobe atelectasis along the major fissure is present. Minimal lingular atelectasis along the major fissure also seen. Excellent pulmonary arterial opacification is noted. No pulmonary arterial thromboembolic disease. Thoracic aorta is grossly unremarkable although not optimally opacified for purposes of aortography. Reflux of contrast into hepatic veins noted. Centrilobular emphysema is present. No pulmonary nodule or mass lesions. No enlarged thoracic lymph nodes. Calcific involvement of the celiac artery origin is noted. Calcific involvement about the superior mesenteric artery also noted. Degenerative changes of the spine compatible with the patient's age noted. Impression: No pulmonary arterial thromboembolic disease. No suspicious infiltrate. Minimal bibasilar atelectasis along the major fissures. Centrilobular emphysema. PQRS Compliance Statement: One or more of the following individualized dose reduction techniques were utilized for this examination: 1. Automated exposure control 2. Adjustment of the mA and/or kV according to patient size 3. Use of iterative reconstruction technique Electronically signed by: Jaswant Rodriguez MD (05/23/2019 10:31 AM) [id number]
[2019-05-23 14:11] VITALS: BP 122/74
--- NOTE | 2019-05-23 21:13 | PN ---
DATE: 05/22/2019 SUBJECTIVE: The patient denies any new medical or neurological complaints. He has not had any recurrent seizure. OBJECTIVE: GENERAL: Well-developed, well-nourished -Bangladeshi male, not in any acute distress. VITAL SIGNS: Blood pressure 140/77, respiratory rate is 16, pulse is 63, temperature 98.7, oxygen saturation 94% on room air. HEENT: Normocephalic, atraumatic, otherwise unremarkable. NECK: Supple. Negative for carotid bruit, lymphadenopathy or thyromegaly. LUNGS: Clear to A and P. CARDIOVASCULAR: Regular rate and rhythm, normal S1, S2. There is no S3, S4 or murmur. ABDOMEN: Soft. Bowel sounds positive. EXTREMITIES: Negative for cyanosis, clubbing or edema. NEUROLOGICAL EXAM: Mental Status: The patient is alert and oriented x 3. Speech is fluent. There is no language dysfunction. Cranial nerves are intact except for bilateral hearing loss. No focal motor or sensory deficit. Deep tendon reflexes were symmetric and hypoactive with absent Achilles responses. Gait not tested. LABORATORY DATA: Dilantin level was elevated at 36.2. IMPRESSION: 1. Dizziness for a few days, likely due to Dilantin toxicity. 2. Hypertension and history of stroke without significant residual. 3. Bilateral hearing loss. RECOMMENDATIONS: 1. We will continue holding on Dilantin for now. 2. Continue with current management. 3. On day of discharge, we will check Dilantin level. If it continues to be high, we will adjust Dilantin medication to 250 mg at bedtime. M Ben DIAZ MD DR: KARINA/caro JOB#: [id number] / [id number]
--- NOTE | 2019-05-23 21:59 | PN ---
DATE: SUBJECTIVE: The patient continued to have mild and intermittent dizziness. He denies any new medical or neurological complaints. He has had seizures since admission. OBJECTIVE: GENERAL: Well-developed, well-nourished -Omani male, not in acute distress. VITAL SIGNS: Blood pressure 133/73, respiratory rate 16, pulse is 74 and regular, temperature 99.1, oxygen saturation is 97%. HEENT: Normocephalic, atraumatic, otherwise unremarkable. NECK: Supple. Negative for carotid bruit, lymphadenopathy or thyromegaly. LUNGS: Clear to A and P. CARDIOVASCULAR: Regular rate and rhythm, normal S1, S2. ABDOMEN: Soft. Bowel sounds positive. EXTREMITIES: Negative for cyanosis, clubbing or edema. NEUROLOGIC: Normal mental status and intact cranial nerves except for mild bilateral hearing loss. No focal motor or sensory deficit. Deep tendon reflexes were symmetric and hypoactive with absent Achilles responses. Gait not tested. LABORATORY DATA: Dilantin level today is 32.6. IMPRESSION: 1. Dilantin toxicity. 2. Hypertension, history of stroke without significant neurological residual. 3. Bilateral hearing loss. RECOMMENDATIONS: Continue to hold Dilantin. In case of discharge, we will adjust Dilantin level down to 250 at bedtime. M Ben DIAZ MD DR: KARINA/caro JOB#: [id number] / [id number]
== END 2019-05-23 15:15 | disposition home or self-care (01) | DRG 918 ==
LOC: ER 14:33 → ICU 16:32 → OBSVTOIN 16:32 → 1 SOUTH 05-22 17:21
PROVIDERS: ADMIT Family Medicine; ATTEND Family Medicine
DX: T42.0X1A Poisoning by hydantoin derivatives, accidental (unintentional), initial encounter (principal); G81.94 Hemiplegia, unspecified affecting left nondominant side; G40.909 Epilepsy, unspecified, not intractable, without status epilepticus; H91.93 Unspecified hearing loss, bilateral; I10 Essential (primary) hypertension; K21.9 Gastro-esophageal reflux disease without esophagitis; M41.9 Scoliosis, unspecified; Z86.73 Personal history of transient ischemic attack (TIA), and cerebral infarction without residual deficits; Y92.89 Other specified places as the place of occurrence of the external cause
CPT/HCPCS: 36415; 71045; 71275; 80048; 80053; 80185; 81001; 82306; 82607; 83540; 83550; 83605; 84443; 85025; 85379; 87641; 93005; J1644; Q9967; 99285-25; J7030

== ENCOUNTER 2019-11-03 15:38 | Emergency (ER) | payer MEDICARE ==
[~2019-11-03] VITALS: Ht 167.6 cm; Wt 66.0 kg
--- NOTE | 2019-11-03 16:02 | PHYS DOC ---
Past History Past Medical History: Seizure Past Surgical History: No Surgical History Smoking: Non-smoker Alcohol Use: None Drug Use: None Adult General Chief Complaint Chief Complaint: SEIZURE [facility] HPI Patient is a 74-year-old male who presents after reportedly having 2 seizure episodes. Patient reportedly has been holding his Dilantin because his level had been high. His last dose was October 31. Patient does not recall events and d enies any pain. Additional history is limited as patient is very poor historian.[] Review of Systems Review of Systems Constitutional: Denies fever or chills [] Respiratory: Denies cough or shortness of breath [] Cardiovascular: No additional information not addressed in HPI [] GI: Denies abdominal pain, nausea, vomiting or diarrhea [] Neurologic: Denies headache, focal weakness or sensory changes. Positive witness seizure activity. [] All other systems were reviewed and found to be within normal limits, except as documented in this note. Allergies Allergies Allergies Coded Allergies Type Severity Reaction Last Updated Verified aspirin Allergy Intermediate 02/18/19 Yes lisinopril Allergy Intermediate 02/18/19 Yes Physical Exam Physical Exam Constitutional: Well developed, well nourished, no acute distress, non-toxic appearance. [] HENT: Normocephalic, atraumatic, bilateral external ears normal, oropharynx moist, no oral exudates, nose normal. [] Eyes: PERRLA, EOMI, conjunctiva normal, no discharge. [] Neck: Normal range of motion, no tenderness, supple. [] Cardiovascular: Regular rate and rhythm[] Lungs & Thorax: Bilateral breath sounds clear to auscultation [] Abdomen: Bowel sounds normal, soft, no tenderness. [] Skin: Warm, dry, no erythema, no rash. [] Extremities: No tenderness, no cyanosis, no clubbing, ROM intact. [] Neurologic: Awake and alert, no focal deficits noted. [] EKG EKG [] Radiology/Procedures Radiology/Procedures [] Course & Med Decision Making Course & Med Decision Making Pertinent Labs and Imaging studies reviewed. (See chart for details) Blood work is been reviewed and patient's Dilantin level noted to be low. Patient given a dose of Cerebyx, 500 mg IV. Patient discharged back to facility. Dragon Disclaimer Dragon Disclaimer This electronic medical record was generated, in whole or in part, using a voice recognition dictation system. Departure Departure: Impression: Primary Impression: Seizure disorder Disposition: HOME, SELF-CARE Condition: STABLE Referrals: ED RAJPUT MD (PCP) Patient Instructions: Seizure, Adult SCOTTY ROMEO Jr. DO Nov 03, 2019 16:01
[2019-11-03 16:28] LABS: BASO % 0 % (0-3); EOS % 0 % (0-3); HEMATOCRIT 40.2 % (39.0-53.0); HEMOGLOBIN 13.4 g/dL (13.0-17.5); LYMPH # 1.6 x10^3/uL (1.0-4.8); LYMPH % 16 % (24-48); MEAN CORPUSCULAR HEMOGLOBIN 34 pg (25-35); MEAN CORPUSCULAR HGB CONC 33 g/dL (31-37); MEAN CORPUSCULAR VOLUME 100 fL (79-100); MONO # 0.8 x10^3/uL (0.0-1.1); MONO % 8 % (0-9); NEUT # 7.6 x10^3uL (1.8-7.7); NEUT % 75 % (31-73); PLATELET COUNT 246 x10^3/uL (140-400); RED BLOOD COUNT 4.01 x10^6/uL (4.30-5.70); RED CELL DISTRIBUTION WIDTH 12.9 % (11.5-14.5); WHITE BLOOD COUNT 10.1 x10^3/uL (4.0-11.0)
[2019-11-03 16:36] LABS: ANION GAP 11 (6-14); BLOOD UREA NITROGEN 12 mg/dL (8-26); BUN/CREATININE RATIO 11 (6-20); CALCIUM 9.1 mg/dL (8.5-10.1); CARBON DIOXIDE 25 mmol/L (21-32); CHLORIDE 104 mmol/L (98-107); CREATININE 1.1 mg/dL (0.7-1.3); GFR 78.7; GLUCOSE 111 mg/dL (70-99); POTASSIUM 3.9 mmol/L (3.5-5.1); SODIUM 140 mmol/L (136-145)
[2019-11-03 16:42] LABS: ALBUMIN 3.7 g/dL (3.4-5.0); ALBUMIN/GLOBULIN RATIO 0.9 (1.0-1.7); ALK PHOS 109 U/L (46-116); ALT (SGPT) 16 U/L (16-63); AST (SGOT) 14 U/L (15-37); PHENY 6.4 mcg/mL (10.0-20.0); TOTAL BILIRUBIN 0.5 mg/dL (0.2-1.0); TOTAL PROTEIN 7.7 g/dL (6.4-8.2)
[2019-11-03] MEDS ORDERED: FOSPHENYTOIN 500 MG in IV NORMAL SALINE 50ML 50 ML IV ONE (18:00)
[2019-11-03 18:18] VITALS: BP 144/79
== END 2019-11-03 18:48 | disposition home or self-care (01) ==
LOC: ER 15:38
DX: G40.909 Epilepsy, unspecified, not intractable, without status epilepticus (principal); Z88.6 Allergy status to analgesic agent; Z88.8 Allergy status to other drugs, medicaments and biological substances
CPT/HCPCS: 36415; 80053; 80185; 83605; 85025; 96365; 99284; Q2009